=== PATIENT | female | born 1975 | race Two or more races ===

== ENCOUNTER 2020-07-15 12:01 | Inpatient (IN) | payer BC ==
[~2020-07-15] VITALS: Ht 147.3 cm; Wt 62.0 kg
[2020-07-15] MEDS ORDERED: LABETALOL 20 MG/4 ML DISP.SYRIN. IVP ONE (12:45)
[2020-07-15 12:46] LABS: BASO % 0 % (0-3); EOS # 0.1 x10^3/uL (0.0-0.7); EOS % 1 % (0-3); HEMATOCRIT 41.6 % (36.0-47.0); HEMOGLOBIN 14.4 g/dL (12.0-15.5); LYMPH # 1.6 x10^3/uL (1.0-4.8); LYMPH % 26 % (24-48); MEAN CORPUSCULAR HEMOGLOBIN 30 pg (25-35); MEAN CORPUSCULAR HGB CONC 35 g/dL (31-37); MEAN CORPUSCULAR VOLUME 87 fL (79-100); MONO # 0.6 x10^3/uL (0.0-1.1); MONO % 9 % (0-9); NEUT # 4.1 x10^3/uL (1.8-7.7); NEUT % 64 % (31-73); PLATELET COUNT 146 x10^3/uL (140-400); WHITE BLOOD COUNT 6.4 x10^3/uL (4.0-11.0)
[2020-07-15 12:49] LABS: BILIRUBIN,URINE NEGATIVE (NEG); CLARITY,URINE CLEAR; COLOR,URINE YELLOW; NITRITE,URINE NEGATIVE (NEG); PH,URINE 5.5 (<5.0-8.0); PROTEIN,URINE 30 mg/dL (NEG-TRACE); UROBILINOGEN,URINE 0.2 mg/dL (0.2 mg/dL)
[2020-07-15 12:56] LABS: PROTHROMBIN TIME PATIENT 12.6 SEC (11.7-14.0)
[2020-07-15 12:57] LABS: BARBITURATES NEG (NEG); BENZODIAZEPINES NEG (NEG); CANNABINOIDS NEG (NEG); COCAINE NEG (NEG); METHADONE NEG (NEG); OPIATES NEG (NEG); PHENCYCLIDINE NEG (NEG); SQUAMOUS EPITHELIAL CELL,UR FEW /LPF
[2020-07-15 12:58] LABS: CALCIUM 9.3 mg/dL (8.5-10.1); CREATININE 0.7 mg/dL (0.6-1.0); GFR 90.1; POTASSIUM 3.6 mmol/L (3.5-5.1)
[2020-07-15 12:58] LABS: BACTERIA,URINE 0 /HPF (0-FEW); RBC,URINE 0 /HPF (0-2)
[2020-07-15 12:59] LABS: AMPHETAMINE/METHAMPHETAMINE NEG (NEG)
--- NOTE | 2020-07-15 13:00 | RAD ---
Study: CR PORTABLE CHEST 1V Indication: Numbness. Comparison: None. Findings: Unremarkable cardiomediastinal silhouette and marvin. No lobar consolidation, pleural effusion or pneumothorax. Impression: No acute radiographic abnormality of the chest. Electronically signed by: BLU VIVAR MD (07/15/2020 12:57 PM) [id number]
[2020-07-15 13:03] LABS: ALBUMIN 3.6 g/dL (3.4-5.0); ALBUMIN/GLOBULIN RATIO 0.8 (1.0-1.7); MAGNESIUM 1.5 mg/dL (1.8-2.4); TOTAL BILIRUBIN 0.5 mg/dL (0.2-1.0); TOTAL PROTEIN 8.4 g/dL (6.4-8.2)
--- NOTE | 2020-07-15 13:15 | PHYS DOC ---
Past Medical History Past Medical History: No Pertinent History Past Surgical History: No Surgical History Smoking Status: Never Smoker Alcohol Use: None General Adult EDM: Chief Complaint: NEURO SYMPTOMS/DEFICITS HPI: HPI: Patient is a 44 year old female with no significant medical history presents to the ED today complaining of numbness and tingling the began yesterday at 3 PM to the left upper and left lower extremity. Patient denies any headache, chest pain or shortness of breath. She reports she went to urgent care today and was told her blood pressure was high and was sent to the ED to be evaluated. Jillian el denies any headache. Denies any nausea or vomiting. Review of Systems: Review of Systems: Constitutional: Denies fever or chills. [] Eyes: Denies change in visual acuity. [] HENT: Denies nasal congestion or sore throat. [] Respiratory: Denies cough or shortness of breath. [] Cardiovascular: Reports elevated blood pressure. Denies chest pain or edema. [] GI: Denies abdominal pain, nausea, vomiting, bloody stools or diarrhea. [] : Denies dysuria. [] Musculoskeletal: Denies back pain or joint pain. [] Integument: Denies rash. [] Neurologic: Reports headache, denies focal weakness or sensory changes. [] Psychiatric: Denies depression or anxiety. [] Heart Score: Risk Factors: Risk Factors: DM, Current or recent (<one month) smoker, HTN, HLP, family history of CAD, obesity. Risk Scores: Score 0 - 3: 2.5% MACE over next 6 weeks - Discharge Home Score 4 - 6: 20.3% MACE over next 6 weeks - Admit for Clinical Observation Score 7 - 10: 72.7% MACE over next 6 weeks - Early Invasive Strategies Current Medications: Current Medications Medications (Trade) Dose Ordered Sig/Ramon Start Time Stop Time Status Last Admin Dose Admin Labetalol HCl (Normodyne Iv Push) 10 mg 1X ONCE 07/15/20 12:45 07/15/20 12:46 DC 07/15/20 12:52 10 MG Allergies: Allergies: Allergies Coded Allergies Type Severity Reaction Last Updated Verified No Known Drug Allergies 07/15/20 No Physical Exam: PE: Constitutional: Well developed, well nourished, no acute distress, non-toxic appearance. [] HENT: Normocephalic, atraumatic, bilateral external ears normal, oropharynx moist, no oral exudates, nose normal. [] Eyes: PERRLA, EOMI, conjunctiva normal, no discharge. [] Neck: Normal range of motion, no tenderness, supple, no stridor. [] Cardiovascular:Heart rate regular rhythm, no murmur [] Lungs & Thorax: Bilateral breath sounds clear to auscultation [] Abdomen: Bowel sounds normal, soft, no tenderness, no masses, no pulsatile masses. [] Skin: Warm, dry, no erythema, no rash. [] Back: No tenderness, no CVA tenderness. [] Extremities: No tenderness, no cyanosis, no clubbing, ROM intact, no edema. 5/5 strength to bilateral upper and lower extremities. Equal sensation to bilateral upper and lower extremities. Neurologic: Alert and oriented X 3, normal motor function, normal sensory function, no focal deficits noted. Cranial nerves II through XII intact [] Psychologic: Affect normal, judgement normal, mood normal. [] Current Patient Data: Labs: Laboratory Tests Test 07/15/20 12:06 07/15/20 12:33 Urine Collection Type Unknown Urine Color Yellow Urine Clarity Clear Urine pH 5.5 (<5.0-8.0) Urine Specific [place] 1.010 (1.000-1.030) Urine Protein 30 mg/dL (NEG-TRACE) Urine Glucose (UA) Negative mg/dL (NEG) Urine Ketones (Stick) Negative mg/dL (NEG) Urine Blood Negative (NEG) Urine Nitrite Negative (NEG) Urine Bilirubin Negative (NEG) Urine Urobilinogen Dipstick 0.2 mg/dL (0.2 mg/dL) Urine Leukocyte Esterase Negative (NEG) Urine RBC 0 /HPF (0-2) Urine WBC 1-4 /HPF (0-4) Urine Squamous Epithelial Cells Few /LPF Urine Bacteria 0 /HPF (0-FEW) Urine Mucus Mod /LPF Urine Opiates Screen Neg (NEG) Urine Methadone Screen Neg (NEG) Urine Barbiturates Neg (NEG) Urine Phencyclidine Screen Neg (NEG) Urine Amphetamine/Methamphetamine Neg (NEG) Urine Benzodiazepines Screen Neg (NEG) Urine Cocaine Screen Neg (NEG) Urine Cannabinoids Screen Neg (NEG) Urine Ethyl Alcohol Neg (NEG) White Blood Count 6.4 x10^3/uL (4.0-11.0) Red Blood Count 4.80 x10^6/uL (3.50-5.40) Hemoglobin 14.4 g/dL (12.0-15.5) Hematocrit 41.6 % (36.0-47.0) Mean Corpuscular Volume 87 fL (79-100) Mean Corpuscular Hemoglobin 30 pg (25-35) Mean Corpuscular Hemoglobin Concent 35 g/dL (31-37) Red Cell Distribution Width 12.0 % (11.5-14.5) Platelet Count 146 x10^3/uL (140-400) Neutrophils (%) (Auto) 64 % (31-73) Lymphocytes (%) (Auto) 26 % (24-48) Monocytes (%) (Auto) 9 % (0-9) Eosinophils (%) (Auto) 1 % (0-3) Basophils (%) (Auto) 0 % (0-3) Neutrophils # (Auto) 4.1 x10^3/uL (1.8-7.7) Lymphocytes # (Auto) 1.6 x10^3/uL (1.0-4.8) Monocytes # (Auto) 0.6 x10^3/uL (0.0-1.1) Eosinophils # (Auto) 0.1 x10^3/uL (0.0-0.7) Basophils # (Auto) 0.0 x10^3/uL (0.0-0.2) Prothrombin Time 12.6 SEC (11.7-14.0) Prothrombin Time INR 1.0 (0.8-1.1) Activated Partial Thromboplast Time 27 SEC (24-38) Sodium Level 139 mmol/L (136-145) Potassium Level 3.6 mmol/L (3.5-5.1) Chloride Level 104 mmol/L (98-107) Carbon Dioxide Level 26 mmol/L (21-32) Anion Gap 9 (6-14) Blood Urea Nitrogen 11 mg/dL (7-20) Creatinine 0.7 mg/dL (0.6-1.0) Estimated GFR (Cockcroft-Gault) 90.1 BUN/Creatinine Ratio 16 (6-20) Glucose Level 172 mg/dL (70-99) H Calcium Level 9.3 mg/dL (8.5-10.1) Magnesium Level 1.5 mg/dL (1.8-2.4) L Total Bilirubin 0.5 mg/dL (0.2-1.0) Aspartate Amino Transferase (AST) 20 U/L (15-37) Alanine Aminotransferase (ALT) 35 U/L (14-59) Alkaline Phosphatase 70 U/L (46-116) Troponin I Quantitative < 0.017 ng/mL (0.000-0.055) Total Protein 8.4 g/dL (6.4-8.2) H Albumin 3.6 g/dL (3.4-5.0) Albumin/Globulin Ratio 0.8 (1.0-1.7) L Lipase 146 U/L (73-393) Laboratory Tests 07/15/20 12:33 Laboratory Tests 07/15/20 12:33 Vital Signs: Vital Signs Date Time Temp Pulse Resp B/P (MAP) Pulse Ox O2 Delivery O2 Flow Rate FiO2 07/15/20 12:52 105 187/85 07/15/20 12:05 98.1 20 94 Room Air 98.1 EKG: EKG: [] Radiology/Procedures: Radiology/Procedures: []PROCEDURE: PORTABLE CHEST 1V Study: CR PORTABLE CHEST 1V Indication: Numbness. Comparison: None. Findings: Unremarkable cardiomediastinal silhouette and marvin. No lobar consolidation, pleural effusion or pneumothorax. Impression: No acute radiographic abnormality of the chest. Electronically signed by: BLU VIVAR MD (07/15/2020 12:57 PM) [id number] DICTATED and SIGNED BY: BLU VIVAR MD DATE: 07/15/20 1257 ROCEDURE: CT HEAD WO CONTRAST EXAM: Head CT without contrast. HISTORY: Left hand and foot numbness. TECHNIQUE: Computed tomographic images of the head were obtained without contrast. *One or more of the following individualized dose reduction techniques were utilized for this examination: 1. Automated exposure control. 2. Adjustment of the mA and/or kV according to patient size. 3. Use of iterative reconstruction technique. COMPARISON: None. FINDINGS: There is no acute or subacute extra-axial or intraparenchymal hemorrhage. There is no mass effect or midline shift. There is no hydrocephalus. There is a small focus of hypodensity within the left centrum semiovale. The humphries-white matter differentiation pattern is intact. The visualized portions of the orbits, paranasal sinuses and mastoid air cells are unremarkable. No suspicious calvarial lesion is seen. IMPRESSION: Small focus of hyperdensity within the left centrum semiovale. This may be due to chronic small vessel disease or demyelinating disease in a patient of this age. This can be better assessed with MRI. MRI is also more sensitive for acute infarction. Electronically signed by: Odalys Davidson MD (07/15/2020 1:23 PM) [id number] DICTATED and SIGNED BY: ODALYS DAVIDSON MD DATE: 07/15/20 1323 Course & Med Decision Making: Course & Med Decision Making Pertinent Labs and Imaging studies reviewed. (See chart for details) This is a 44-year-old female patient presenting to the ED today with numbness and tingling to the left upper and left lower extremities. Symptoms began yesterday at 3 PM. Patient is not a TPA candidate. Vitals on arrival to the ED blood pressure 183/106, heart rate 86, O2 sats 94% o n room air CT of the head noted for -Small focus of hyperdensity within the left centrum semiovale.This may be due to chronic small vessel disease or demyelinating disease in a patient of this age. This can be better assessed with MRI. MRI is also more sensitive for acute infarction. Spoke to Dr. Mendes regarding patient's EKG of the head. He requested we get a CTA today and MRI tomorrow. Gave patient aspirin Spoke with Dr. Garvin who accepted patient for admission Dr. Westfall was informed about patient's dx and condition. Larry Disclaimer: Larry Disclaimer: This electronic medical record was generated, in whole or in part, using a voice recognition dictation system. NIHSS Stroke Scale NIH Stroke Scale: NIH Stroke Scale Response (Comments) Value Level of Consciousness: 0 Alert/Responsive 0 LOC Questions: 0 Answers both correctly 0 LOC Commands: 0 Performs both tasks 0 Best Gaze: 0 Normal 0 Visual: 0 No visual loss 0 Facial Palsy: 0 Normal, symmetrical 0 Motor - Left Arm 0 No drift 0 Motor - Right Arm 0 No drift 0 Motor - Left Leg 0 No drift 0 Motor: Right Leg 0 No drift 0 Limb Ataxia: 0 Absent 0 Sensory: 0 No loss 0 Best Language: 0 Normal 0 Dysathria: 0 Normal 0 Extinction and Inattention: 0 Normal 0 Total 0 Departure Departure Impression: Primary Impression: CVA (cerebral vascular accident) Qualified Codes: I63.9 - Cerebral infarction, unspecified Additional Impression: HTN (hypertension) Qualified Codes: I10 - Essential (primary) hypertension Disposition: 09 ADMITTED INPATIENT Condition: STABLE Justicifation of Admission Dx: Justifications for Admission: Justification of Admission Dx: Yes Stroke - Ischemic: Stroke-Ischemic MICHELLE MORE APRN Jul 15, 2020 13:15
--- NOTE | 2020-07-15 13:26 | RAD ---
EXAM: Head CT without contrast. HISTORY: Left hand and foot numbness. TECHNIQUE: Computed tomographic images of the head were obtained without contrast. *One or more of the following individualized dose reduction techniques were utilized for this examination: 1. Automated exposure control. 2. Adjustment of the mA and/or kV according to patient size. 3. Use of iterative reconstruction technique. COMPARISON: None. FINDINGS: There is no acute or subacute extra-axial or intraparenchymal hemorrhage. There is no mass effect or midline shift. There is no hydrocephalus. There is a small focus of hypodensity within the left centrum semiovale. The humphries-white matter differentiation pattern is intact. The visualized portions of the orbits, paranasal sinuses and mastoid air cells are unremarkable. No suspicious calvarial lesion is seen. IMPRESSION: Small focus of hyperdensity within the left centrum semiovale. This may be due to chronic small vessel disease or demyelinating disease in a patient of this age. This can be better assessed with MRI. MRI is also more sensitive for acute infarction. Electronically signed by: Odalys Barkley MD (07/15/2020 1:23 PM) [id number]
[2020-07-15] MEDS ORDERED: ASPIRIN CHEWABLE 81 MG TABLET. PO ONE (14:00)
[2020-07-15] MEDS ORDERED: IOHEXOL 300 MG/ML 100ML VIAL. IV ONE (14:30)
[2020-07-15] MEDS ORDERED: MORPHINE SULFATE 2 MG/ML VIAL. IV PRN (14:45)
[2020-07-15] MEDS ORDERED: ONDANSETRON PF 4 MG/2 ML VIAL. IV PRN (14:45)
[2020-07-15] MEDS ORDERED: POTASSIUM CHLORIDE 20 MEQ TABLET.ER. PO PRN (15:00)
[2020-07-15] MEDS ORDERED: SENNOSIDES 8.6 MG TABLET PO PRN (15:00)
[2020-07-15] MEDS ORDERED: ONDANSETRON PF 4 MG/2 ML VIAL. IVP PRN (15:00)
[2020-07-15] MEDS ORDERED: POTASSIUM CHLORIDE 10MEQ 100 ML IV PRN (15:00)
[2020-07-15] MEDS ORDERED: DEXTROSE 50% 25 GM / 50ML DISP.SYRIN. IV PRN (15:00)
[2020-07-15] MEDS ORDERED: POTASSIUM CHLORIDE 10MEQ 100 ML IV SCH (15:00)
[2020-07-15] MEDS ORDERED: ACETAMINOPHEN 325 MG TABLET. PO PRN (15:00)
[2020-07-15] MEDS ORDERED: DOCUSATE SODIUM 100 MG CAPSULE. PO PRN (15:00)
[2020-07-15] MEDS ORDERED: MAGNESIUM SULFATE 2GM 50 ML IV SCH (15:00)
--- NOTE | 2020-07-15 15:00 | PDOC1 ---
History and Physical Date of Service: DOS: DATE: 07/15/20 TIME: 14:42 Chief Complaint: Chief Complain: Left side numbness History of Present Illness: HPI: 44 year old female with no significant medical history presents to the ED today complaining of numbness and tingling the began yesterday at 3 PM to the left upper and left lower extremity. Patient denies any headache, chest pain or shortness of breath. She reports she went to urgent care today and was told her blood pressure was high and was sent to the ED to be evaluated. Patient denies any headache. Denies any nausea or vomiting. Past Medical/Surgical History: PMH/PSH: Reviewed and none reported Allergies: Allergies: Coded Allergies: No Known Drug Allergies (Unverified , 07/15/20) Family History: Family History: Reviewed and none reported Social History: Social History: Denies smoking, alcohol, drug abuse Current Medications: Current Medications Current Medications Labetalol HCl (Normodyne Iv Push) 10 mg 1X ONCE IVP Last administered on 07/15/20at 12:52; Start 07/15/20 at 12:45; Stop 07/15/20 at 12:46; Status DC Aspirin (Aspirin Chewable) 324 mg 1X ONCE PO Last administered on 07/15/20at 14:12; Start 07/15/20 at 14:00; Stop 07/15/20 at 14:04; Status DC Iohexol (Omnipaque 300 Mg/ml) 75 ml 1X ONCE IV ; Start 07/15/20 at 14:30; Stop 07/15/20 at 14:31; Status DC ROS: Review of Systems Review of System REVIEW OF SYSTEMS: GENERAL: Denies weakness SKIN: No bruising, hair changes or rashes. EYES: No blurred, double or loss of vision. NOSE AND THROAT: No history of nosebleeds, hoarseness or sore throat. HEART: No history of palpitations, chest pain or shortness of breath on exertion. LUNGS: Denies cough, hemoptysis, wheezing or shortness of breath. GASTROINTESTINAL: Denies changes in appetite, nausea, vomiting, diarrhea or constipation. GENITOURINARY: No history of frequency, urgency, hesitancy or nocturia. NEUROLOGIC: Denies history of numbness, tingling, or tremor. PSYCHIATRIC: No history of panic, anxiety or depression. ENDOCRINE: No history of heat or cold intolerance, polyuria or polydipsia. EXTREMITIES: Denies joint pain, pain on walking or stiffness. Physical Exam: Vital Signs: Vital Signs Date Time Temp Pulse Resp B/P (MAP) Pulse Ox O2 Delivery O2 Flow Rate FiO2 07/15/20 12:52 105 187/85 07/15/20 12:05 98.1 20 94 Room Air 98.1 Physcial Exam: GEN: No apparent distress. Alert and oriented HEENT: Normal cephalic, atraumatic, external auditory canals are patent EYES: Extraocular muscles are intact, pupil are equally round and reactive to light and accommodation MUSCULOSKELETAL: Well developed , well nourished, good range of motion ENDOCRINE: No thyromegaly was palpated LYMPHATICS: No cervical chain or axillary nodes were noted HEMATOPOIETIC: No bruising NECK: Supple, no JVD, no thyromegaly was noted LUNGS: Clear to auscultation in all lung low without rhonchi or wheezing HEART: RRR, S!, S2 present. Peripheral pulses intact, no obvious murmurs noted ABDOMEN: Soft, nontender. Positive bowel sounds, no organomegaly, normal bowel sounds EXTREMITIES: Without clubbing, cyanosis, or edema. Pedal pulses intact. Negative Homans sign NEUROLOGIC: Normal speech and tone. A&O x 3, moves all extremities, no obvious focal deficits PSYCHIATRIC: Normal affect, normal mood. Stable SKIN: No ulcerations or rashes, good skin turgor, no jaundice VASCULAR: Good capillary refill, neurovascular bundle appears to be intact Labs: Labs: Laboratory Tests Test 07/15/20 12:06 07/15/20 12:33 Urine Collection Type Unknown Urine Color Yellow Urine Clarity Clear Urine pH 5.5 (<5.0-8.0) Urine Specific [place] 1.010 (1.000-1.030) Urine Protein 30 mg/dL (NEG-TRACE) Urine Glucose (UA) Negative mg/dL (NEG) Urine Ketones (Stick) Negative mg/dL (NEG) Urine Blood Negative (NEG) Urine Nitrite Negative (NEG) Urine Bilirubin Negative (NEG) Urine Urobilinogen Dipstick 0.2 mg/dL (0.2 mg/dL) Urine Leukocyte Esterase Negative (NEG) Urine RBC 0 /HPF (0-2) Urine WBC 1-4 /HPF (0-4) Urine Squamous Epithelial Cells Few /LPF Urine Bacteria 0 /HPF (0-FEW) Urine Mucus Mod /LPF Urine Opiates Screen Neg (NEG) Urine Methadone Screen Neg (NEG) Urine Barbiturates Neg (NEG) Urine Phencyclidine Screen Neg (NEG) Urine Amphetamine/Methamphetamine Neg (NEG) Urine Benzodiazepines Screen Neg (NEG) Urine Cocaine Screen Neg (NEG) Urine Cannabinoids Screen Neg (NEG) Urine Ethyl Alcohol Neg (NEG) White Blood Count 6.4 x10^3/uL (4.0-11.0) Red Blood Count 4.80 x10^6/uL (3.50-5.40) Hemoglobin 14.4 g/dL (12.0-15.5) Hematocrit 41.6 % (36.0-47.0) Mean Corpuscular Volume 87 fL (79-100) Mean Corpuscular Hemoglobin 30 pg (25-35) Mean Corpuscular Hemoglobin Concent 35 g/dL (31-37) Red Cell Distribution Width 12.0 % (11.5-14.5) Platelet Count 146 x10^3/uL (140-400) Neutrophils (%) (Auto) 64 % (31-73) Lymphocytes (%) (Auto) 26 % (24-48) Monocytes (%) (Auto) 9 % (0-9) Eosinophils (%) (Auto) 1 % (0-3) Basophils (%) (Auto) 0 % (0-3) Neutrophils # (Auto) 4.1 x10^3/uL (1.8-7.7) Lymphocytes # (Auto) 1.6 x10^3/uL (1.0-4.8) Monocytes # (Auto) 0.6 x10^3/uL (0.0-1.1) Eosinophils # (Auto) 0.1 x10^3/uL (0.0-0.7) Basophils # (Auto) 0.0 x10^3/uL (0.0-0.2) Prothrombin Time 12.6 SEC (11.7-14.0) Prothromb Time International Ratio 1.0 (0.8-1.1) Activated Partial Thromboplast Time 27 SEC (24-38) Sodium Level 139 mmol/L (136-145) Potassium Level 3.6 mmol/L (3.5-5.1) Chloride Level 104 mmol/L (98-107) Carbon Dioxide Level 26 mmol/L (21-32) Anion Gap 9 (6-14) Blood Urea Nitrogen 11 mg/dL (7-20) Creatinine 0.7 mg/dL (0.6-1.0) Estimated GFR (Cockcroft-Gault) 90.1 BUN/Creatinine Ratio 16 (6-20) Glucose Level 172 mg/dL (70-99) Calcium Level 9.3 mg/dL (8.5-10.1) Magnesium Level 1.5 mg/dL (1.8-2.4) Total Bilirubin 0.5 mg/dL (0.2-1.0) Aspartate Amino Transf (AST/SGOT) 20 U/L (15-37) Alanine Aminotransferase (ALT/SGPT) 35 U/L (14-59) Alkaline Phosphatase 70 U/L (46-116) Troponin I Quantitative < 0.017 ng/mL (0.000-0.055) BZ-Oll-I-Type Natriuretic Peptide 23 pg/mL (0-124) Total Protein 8.4 g/dL (6.4-8.2) Albumin 3.6 g/dL (3.4-5.0) Albumin/Globulin Ratio 0.8 (1.0-1.7) Lipase 146 U/L (73-393) Thyroid Stimulating Hormone (TSH) 0.323 uIU/mL (0.358-3.74) Laboratory Tests Test 07/15/20 12:06 07/15/20 12:33 Urine Collection Type Unknown Urine Color Yellow Urine Clarity Clear Urine pH 5.5 (<5.0-8.0) Urine Specific [place] 1.010 (1.000-1.030) Urine Protein 30 mg/dL (NEG-TRACE) Urine Glucose (UA) Negative mg/dL (NEG) Urine Ketones (Stick) Negative mg/dL (NEG) Urine Blood Negative (NEG) Urine Nitrite Negative (NEG) Urine Bilirubin Negative (NEG) Urine Urobilinogen Dipstick 0.2 mg/dL (0.2 mg/dL) Urine Leukocyte Esterase Negative (NEG) Urine RBC 0 /HPF (0-2) Urine WBC 1-4 /HPF (0-4) Urine Squamous Epithelial Cells Few /LPF Urine Bacteria 0 /HPF (0-FEW) Urine Mucus Mod /LPF Urine Opiates Screen Neg (NEG) Urine Methadone Screen Neg (NEG) Urine Barbiturates Neg (NEG) Urine Phencyclidine Screen Neg (NEG) Urine Amphetamine/Methamphetamine Neg (NEG) Urine Benzodiazepines Screen Neg (NEG) Urine Cocaine Screen Neg (NEG) Urine Cannabinoids Screen Neg (NEG) Urine Ethyl Alcohol Neg (NEG) White Blood Count 6.4 x10^3/uL (4.0-11.0) Red Blood Count 4.80 x10^6/uL (3.50-5.40) Hemoglobin 14.4 g/dL (12.0-15.5) Hematocrit 41.6 % (36.0-47.0) Mean Corpuscular Volume 87 fL (79-100) Mean Corpuscular Hemoglobin 30 pg (25-35) Mean Corpuscular Hemoglobin Concent 35 g/dL (31-37) Red Cell Distribution Width 12.0 % (11.5-14.5) Platelet Count 146 x10^3/uL (140-400) Neutrophils (%) (Auto) 64 % (31-73) Lymphocytes (%) (Auto) 26 % (24-48) Monocytes (%) (Auto) 9 % (0-9) Eosinophils (%) (Auto) 1 % (0-3) Basophils (%) (Auto) 0 % (0-3) Neutrophils # (Auto) 4.1 x10^3/uL (1.8-7.7) Lymphocytes # (Auto) 1.6 x10^3/uL (1.0-4.8) Monocytes # (Auto) 0.6 x10^3/uL (0.0-1.1) Eosinophils # (Auto) 0.1 x10^3/uL (0.0-0.7) Basophils # (Auto) 0.0 x10^3/uL (0.0-0.2) Prothrombin Time 12.6 SEC (11.7-14.0) Prothromb Time International Ratio 1.0 (0.8-1.1) Activated Partial Thromboplast Time 27 SEC (24-38) Sodium Level 139 mmol/L (136-145) Potassium Level 3.6 mmol/L (3.5-5.1) Chloride Level 104 mmol/L (98-107) Carbon Dioxide Level 26 mmol/L (21-32) Anion Gap 9 (6-14) Blood Urea Nitrogen 11 mg/dL (7-20) Creatinine 0.7 mg/dL (0.6-1.0) Estimated GFR (Cockcroft-Gault) 90.1 BUN/Creatinine Ratio 16 (6-20) Glucose Level 172 mg/dL (70-99) Calcium Level 9.3 mg/dL (8.5-10.1) Magnesium Level 1.5 mg/dL (1.8-2.4) Total Bilirubin 0.5 mg/dL (0.2-1.0) Aspartate Amino Transf (AST/SGOT) 20 U/L (15-37) Alanine Aminotransferase (ALT/SGPT) 35 U/L (14-59) Alkaline Phosphatase 70 U/L (46-116) Troponin I Quantitative < 0.017 ng/mL (0.000-0.055) AC-Rkg-C-Type Natriuretic Peptide 23 pg/mL (0-124) Total Protein 8.4 g/dL (6.4-8.2) Albumin 3.6 g/dL (3.4-5.0) Albumin/Globulin Ratio 0.8 (1.0-1.7) Lipase 146 U/L (73-393) Thyroid Stimulating Hormone (TSH) 0.323 uIU/mL (0.358-3.74) Images: Images CT of the head Small focus of hyperdensity within the left centrum semiovale. This may be due to chronic small vessel disease or demyelinating disease in a patient of this age. This can be better assessed with MRI. MRI is also more sensitive for acute infarction. Assessment/Plan Assessment/Plan Acute TIA versus ischemic stroke Hypertensive urgency Hyperglycemia Hypomagnesemia Concern for hyperthyroidism EKG Onset of symptoms > 4.5 hours NIH 0 Admit to medicine for further workup Neuro consult Pending MRI brain, TTE, carotid U/S vs CTA head/neck if suspecting large ant erior circulation occulsion within 24 hours of presentation of symptoms continue telemonitoring for at least 24 hours contine IVF while NPO maintain normoglycemia with goals of 140-180 permissive HTN with goals between 140-180/90-105 for at least 24 hours if tPA administered, maintain BP goals < 180/105 for at least 24 hours continue ASA 81 daily within 48 hours continue high intensity statins pending PT/OT/speech Pending T4 levels SCD for DVT prophylaxis, can consider Lovenox within the next 24 hours ADA diet Full code Discussed with RN and SW Disposition pending neuro evaluation Surrogate decision maker is the Justifications for Admission Other Justification CLAUDIA SMITH MD Jul 15, 2020 15:00
--- NOTE | 2020-07-15 15:07 | RAD ---
EXAM: CT angiogram of the head and neck with intravenous contrast. HISTORY: Stroke. TECHNIQUE: Computed tomographic images the head and neck were obtained following the administration of intravenous contrast. Three-dimensional maximum intensity projection images were obtained. COMPARISON: Noncontrast head CT obtained on the same date. FINDINGS: There is a dilated ascending aorta measuring 3.9 cm. This is partially excluded from the cioca-sp-soag. There is a standard aortic arch branching pattern. No aortic dissection is seen. There is no pneumothorax. There is posterior dependent atelectasis. There is no suspicious pulmonary nodule. There is a prominent thyroid. No discrete nodule is seen. The parotid and submandibular glands are unremarkable. There are prominent left greater than right submandibular lymph nodes. For reference purposes, there is a left submental lymph node measuring 1.8 cm in maximum transaxial dimension. There is mild partially calcified atherosclerotic plaque involving the proximal left external carotid artery, without associated stenosis. No image of the syndesmosis is seen involving the internal carotid arteries. There is a duplicated right A1 segment or early branching prominent right anterior communicating artery with hypoplastic left A1 segment. There is a patent right posterior communicating artery. The left posterior communicating artery is relatively absent. The right vertebral artery slightly dominant. No aneurysm is seen. No suspicious enhancing lesion is seen. There is no mass effect or midline shift. There is no hydrocephalus. The humphries-white matter differentiation pattern is intact. The recently demonstrated small focus of hyperdensity within the left centrum small bowel is not well seen given the presence of contrast. There is mild paranasal sinus because of thickening with tiny left maxillary sinus mucous retention cysts. The mastoid air cells are clear. The orbits are unremarkable. There is no suspicious osseous lesion. IMPRESSION: 1. No evidence of hemodynamically significant stenosis or aneurysm. There are normal cerebral vascular anatomic variants, described above. 2. Small subtle focus of hyperdensity within the left centrum semiovale, better characterized on the noncontrast exam performed on the same date. This may be due to chronic small vessel disease or a focus of demyelination in a patient of this age. MRI is more sensitive for acute infarction. 3. Mildly dilated ascending aorta measuring 3.9 cm in caliber. This is partially excluded from the [id number]. PQRS Compliance Statement - Stenosis calculations for CT, MR and conventional angiography are based upon measurement of the distal ICA diameter in accordance with the NASCET methodology. Stenosis calculations for carotid ultrasound studies are derived from validated velocity criteria which are known to correlate with the NASCET methodology. Electronically signed by: Odalys Barkley MD (07/15/2020 3:04 PM) [id number]
[2020-07-15] MEDS ORDERED: ELECTROLYTE (NON-ICU) PROTOCOL MC PRN (15:15)
[2020-07-15 15:59] LABS: CHOLESTEROL/HDL RATIO 4.6
[2020-07-15] MEDS: INSULIN LISPRO 300 UNITS/3 ML VIAL. SQ SCH (16:57)
[2020-07-15] MEDS: MAGNESIUM SULFATE 2GM 50 ML IV SCH (16:57)
[2020-07-15 19:00] VITALS: BP 164/91
[2020-07-15] MEDS: ATORVASTATIN CALCIUM 40 MG TABLET. PO SCH (21:00)
[2020-07-15] MEDS ORDERED: MAGNESIUM OXIDE 400 MG TABLET PO SCH (21:00)
[2020-07-15 23:00] VITALS: BP 120/85
[2020-07-16 02:07] LABS: HEMOGLOBIN A1C 8.6 % (4.8-5.6)
[2020-07-16 03:00] VITALS: BP 133/79
[2020-07-16 04:58] LABS: BASO % 0 % (0-3); EOS # 0.1 x10^3/uL (0.0-0.7); EOS % 2 % (0-3); HEMATOCRIT 37.2 % (36.0-47.0); HEMOGLOBIN 12.9 g/dL (12.0-15.5); LYMPH % 37 % (24-48); MEAN CORPUSCULAR HEMOGLOBIN 30 pg (25-35); MEAN CORPUSCULAR HGB CONC 35 g/dL (31-37); MEAN CORPUSCULAR VOLUME 87 fL (79-100); MONO # 0.6 x10^3/uL (0.0-1.1); MONO % 11 % (0-9); NEUT # 2.7 x10^3/uL (1.8-7.7); NEUT % 50 % (31-73); PLATELET COUNT 138 x10^3/uL (140-400); RED BLOOD COUNT 4.26 x10^6/uL (3.50-5.40); RED CELL DISTRIBUTION WIDTH 12.2 % (11.5-14.5); WHITE BLOOD COUNT 5.3 x10^3/uL (4.0-11.0)
[2020-07-16 05:26] LABS: CALCIUM 8.5 mg/dL (8.5-10.1); CREATININE 0.6 mg/dL (0.6-1.0); GFR 107.6; PHOSPHORUS 4.1 mg/dL (2.6-4.7); POTASSIUM 3.4 mmol/L (3.5-5.1)
[2020-07-16 07:00] VITALS: BP 118/72
[2020-07-16] MEDS: INSULIN LISPRO 300 UNITS/3 ML VIAL. SQ SCH ×3 (08:00→17:00)
--- NOTE | 2020-07-16 08:53 | EKG ---
[facility] [address] [place] [address] Test Date: 2020-07-15 Test Time: 12:29:27 Pat Name: JEWELL HUTCHINSON Department: Room: Gender: F Mid Level Provider: : 1975 Requested By: MICHELLE MORE Order Number: [id number] Reading MD: Measurements Intervals [place] Rate: 86 P: 32 ID: [id number] QRS: -3 QRSD: 86 T: 7 QT: 348 QTc: 419 Interpretive Statements SINUS RHYTHM LEFTWARD AXIS OTHERWISE NORMAL ECG RI6.02 No previous ECG available for comparison
--- NOTE | 2020-07-16 10:26 | RAD ---
BRAIN W/O CONTRAST Date: 07/16/2020 8:00 AM Indication: possible CVA, numbness and tingling LUE and LLE Comparison: CT 07/15/2020. Technique: Multiplanar multisequence MRI of the brain was performed without intravenous contrast using the standard protocol. Findings: Small area of restricted diffusion in the right frontoparietal region. No acute or chronic hemorrhage. The ventricles are normal in size and configuration without hydrocephalus. The scalp and calvarium are normal. The pituitary and sella are normal. No Chiari malformation. The visualized upper cervical spine is normal. The visualized orbits and globes are normal. The visualized paranasal sinuses are clear. The mastoid air cells are clear. Normal flow voids within the vertebral, basilar, and internal carotid arteries indicating patency. IMPRESSION: Small area of acute infarct in the right frontoparietal region. No acute hemorrhage. FOR INTERNAL CODING PURPOSES Critical result: Findings discussed with the patient's nurse at 07/16/2020 10:19 AM. RESULT CODE: (C) Electronically signed by: Parth Benson MD (07/16/2020 10:23 AM) [id number]
--- NOTE | 2020-07-16 10:53 | PDOC2 ---
NEUROLOGY CONSULT Date of Service DOS: DATE: 07/16/20 TIME: 10:47 Reason for Consult Reason for Consult: stroke Source Source: Caregiver (family), Patient History of Present Illness History of Present Illness The patient is a 44 year old right-handed female who had onset of tingling and numbness the afternoon of 07/14. She presented to the merger department or 07/15, far outside the [place] treatment window. There is no prior history of stroke, seizure, or head injury. She does not usually see a doctor but think she may have some high blood pressure. 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, meat worker Current Medications Current Medications Current Medications Labetalol HCl (Normodyne Iv Push) 10 mg 1X ONCE IVP Last administered on 07/15/20at 12:52; Start 07/15/20 at 12:45; Stop 07/15/20 at 12:46; Status DC Aspirin (Aspirin Chewable) 324 mg 1X ONCE PO Last administered on 07/15/20at 14:12; Start 07/15/20 at 14:00; Stop 07/15/20 at 14:04; Status DC Iohexol (Omnipaque 300 Mg/ml) 75 ml 1X ONCE IV Last administered on 07/15/20at 14:30; Start 07/15/20 at 14:30; Stop 07/15/20 at 14:31; Status DC Ondansetron HCl (Zofran) 4 mg PRN Q8HRS PRN IV NAUSEA/VOMITING; Start 07/15/20 at 14:45; Stop 07/16/20 at 14:44 Morphine Sulfate (Morphine Sulfate) 2 mg PRN Q2HR PRN IV PAIN; Start 07/15/20 at 14:45; Stop 07/16/20 at 14:44 Sennosides (Senna) 17.2 mg PRN BID PRN PO CONSTIPATION; Start 07/15/20 at 15:00 Docusate Sodium (Colace) 100 mg PRN DAILY PRN PO HARD STOOLS; Start 07/15/20 at 15:00 Ondansetron HCl (Zofran) 4 mg PRN Q6HRS PRN IVP NAUSEA/VOMITING; Start 07/15/20 at 15:00 Potassium Chloride (Klor-Con) 40 meq 1X PRN PO PER PROTOCOL; Start 07/15/20 at 15:00; Status UNV Magnesium Oxide (Magnesium Oxide) 400 mg BID PO ; Start 07/15/20 at 21:00; Stop 07/17/20 at 09:01; Status UNV Potassium Chloride/Water 100 ml @ 100 mls/hr Q1H IV ; Start 07/15/20 at 15:00; Stop 07/15/20 at 18:59; Status UNV Magnesium Sulfate 50 ml @ 25 mls/hr Q24H IV ; Start 07/15/20 at 15:00; Stop 07/17/20 at 16:59; Status UNV Potassium Chloride/Water 100 ml @ 100 mls/hr Q1H PRN IV low k; Start 07/15/20 at 15:00; Status UNV Aspirin (Ecotrin) 81 mg DAILYWBKFT PO ; Start 07/16/20 at 08:00 Insulin Human Lispro (HumaLOG) 0-5 UNITS TIDWMEALS SQ ; Start 07/15/20 at 17:00 Dextrose (Dextrose 50%-Water Syringe) 12.5 gm PRN Q15MIN PRN IV SEE COMMENTS; Start 07/15/20 at 15:00 Acetaminophen (Tylenol) 650 mg PRN Q4HRS PRN PO TEMP OVER 100.4F OR MILD PAIN; Start 07/15/20 at 15:00 Info (Non-Icu Electrolyte Protocol) 1 ea CONT PRN PRN MC PER PROTOCOL; Start 07/15/20 at 15:15 Atorvastatin Calcium (Lipitor) 40 mg QHS PO ; Start 07/15/20 at 21:00 Magnesium Sulfate 50 ml @ 25 mls/hr Q24H IV Last administered on 07/15/20at 16:57; Start 07/15/20 at 17:00; Stop 07/17/20 at 18:59 Allergies Allergies: Coded Allergies: No Known Drug Allergies (Unverified , 07/15/20) ROS Review of System Negative for fever, chills, weight loss, shortness of breath, chest pain, indigestion, hematochezia, melena, and dysuria. Full 14-point review of systems is negative. Physical Exam Physical Examination General: Well-developed, well-nourished female in no acute distress HEENT: Normocephalic andatraumatic. Temporal arteriespulsatile and nontender. Neck: Supple without bruit, no meningismus Musculoskeletal: Stability:see neurologic. Gait exam:see neurologic. Tone:see neurologic.Strength:see neurologic. Neurological: Mental Status:intact, orientation, memory, attention span/concentration, language, fund of knowledge normal. Cranial Nerves:Pupils equal and reactive to light, extraocular movements areintact, visual low are full to confrontation. Facial sensation is normal. There is no facial asymmetry. Vestibulo-ocular reflex is intact. Palate elevates and tongue protrudes in midline. All other cranial related problems are negative except as mentioned before.Reflexes:2+ and symmetric with flexor plantar responses. Motor:4/5 left hemiparesis with normal tone and bulk. Coordination:Finger-nose finger and pbki-nc-fudi testing are normal. Rapid alternating movements and fine finger movements are intact. Gait: not tested. Sensory:Normal pinprick, vibration, light touch, proprioception. Vitals VITALS Vital Signs Date Time Temp Pulse Resp B/P (MAP) Pulse Ox O2 Delivery O2 Flow Rate FiO2 07/16/20 07:00 98.4 76 20 118/72 (87) 95 Room Air 98.4 Labs Labs Laboratory Tests Test 07/15/20 12:06 07/15/20 12:33 07/15/20 15:35 07/15/20 16:55 Urine Collection Type Unknown Urine Color Yellow Urine Clarity Clear Urine pH 5.5 (<5.0-8.0) Urine Specific [place] 1.010 (1.000-1.030) Urine Protein 30 mg/dL (NEG-TRACE) Urine Glucose (UA) Negative mg/dL (NEG) Urine Ketones (Stick) Negative mg/dL (NEG) Urine Blood Negative (NEG) Urine Nitrite Negative (NEG) Urine Bilirubin Negative (NEG) Urine Urobilinogen Dipstick 0.2 mg/dL (0.2 mg/dL) Urine Leukocyte Esterase Negative (NEG) Urine RBC 0 /HPF (0-2) Urine WBC 1-4 /HPF (0-4) Urine Squamous Epithelial Cells Few /LPF Urine Bacteria 0 /HPF (0-FEW) Urine Mucus Mod /LPF Urine Opiates Screen Neg (NEG) Urine Methadone Screen Neg (NEG) Urine Barbiturates Neg (NEG) Urine Phencyclidine Screen Neg (NEG) Urine Amphetamine/Methamphetamine Neg (NEG) Urine Benzodiazepines Screen Neg (NEG) Urine Cocaine Screen Neg (NEG) Urine Cannabinoids Screen Neg (NEG) Urine Ethyl Alcohol Neg (NEG) White Blood Count 6.4 x10^3/uL (4.0-11.0) Red Blood Count 4.80 x10^6/uL (3.50-5.40) Hemoglobin 14.4 g/dL (12.0-15.5) Hematocrit 41.6 % (36.0-47.0) Mean Corpuscular Volume 87 fL (79-100) Mean Corpuscular Hemoglobin 30 pg (25-35) Mean Corpuscular Hemoglobin Concent 35 g/dL (31-37) Red Cell Distribution Width 12.0 % (11.5-14.5) Platelet Count 146 x10^3/uL (140-400) Neutrophils (%) (Auto) 64 % (31-73) Lymphocytes (%) (Auto) 26 % (24-48) Monocytes (%) (Auto) 9 % (0-9) Eosinophils (%) (Auto) 1 % (0-3) Basophils (%) (Auto) 0 % (0-3) Neutrophils # (Auto) 4.1 x10^3/uL (1.8-7.7) Lymphocytes # (Auto) 1.6 x10^3/uL (1.0-4.8) Monocytes # (Auto) 0.6 x10^3/uL (0.0-1.1) Eosinophils # (Auto) 0.1 x10^3/uL (0.0-0.7) Basophils # (Auto) 0.0 x10^3/uL (0.0-0.2) Prothrombin Time 12.6 SEC (11.7-14.0) Prothromb Time International Ratio 1.0 (0.8-1.1) Activated Partial Thromboplast Time 27 SEC (24-38) Sodium Level 139 mmol/L (136-145) Potassium Level 3.6 mmol/L (3.5-5.1) Chloride Level 104 mmol/L (98-107) Carbon Dioxide Level 26 mmol/L (21-32) Anion Gap 9 (6-14) Blood Urea Nitrogen 11 mg/dL (7-20) Creatinine 0.7 mg/dL (0.6-1.0) Estimated GFR (Cockcroft-Gault) 90.1 BUN/Creatinine Ratio 16 (6-20) Glucose Level 172 mg/dL (70-99) Hemoglobin A1c 8.6 % (4.8-5.6) Calcium Level 9.3 mg/dL (8.5-10.1) Magnesium Level 1.5 mg/dL (1.8-2.4) Total Bilirubin 0.5 mg/dL (0.2-1.0) Aspartate Amino Transf (AST/SGOT) 20 U/L (15-37) Alanine Aminotransferase (ALT/SGPT) 35 U/L (14-59) Alkaline Phosphatase 70 U/L (46-116) Troponin I Quantitative < 0.017 ng/mL (0.000-0.055) < 0.017 ng/mL (0.000-0.055) AM-Eex-K-Type Natriuretic Peptide 23 pg/mL (0-124) Total Protein 8.4 g/dL (6.4-8.2) Albumin 3.6 g/dL (3.4-5.0) Albumin/Globulin Ratio 0.8 (1.0-1.7) Triglycerides Level 88 mg/dL (0-150) Cholesterol Level 256 mg/dL (0-200) LDL Cholesterol, Calculated 182 mg/dL (0-100) VLDL Cholesterol, Calculated 18 mg/dL (0-40) Non-HDL Cholesterol Calculated 200 mg/dL (0-129) HDL Cholesterol 56 mg/dL (40-60) Cholesterol/HDL Ratio 4.6 Lipase 146 U/L (73-393) Thyroid Stimulating Hormone (TSH) 0.323 uIU/mL (0.358-3.74) Free Thyroxine 1.20 ng/dL (0.76-1.46) Glucose (Fingerstick) 158 mg/dL (70-99) Test 07/15/20 17:40 07/15/20 21:33 07/16/20 03:40 07/16/20 08:04 Troponin I Quantitative < 0.017 ng/mL (0.000-0.055) Glucose (Fingerstick) 137 mg/dL (70-99) 144 mg/dL (70-99) White Blood Count 5.3 x10^3/uL (4.0-11.0) Red Blood Count 4.26 x10^6/uL (3.50-5.40) Hemoglobin 12.9 g/dL (12.0-15.5) Hematocrit 37.2 % (36.0-47.0) Mean Corpuscular Volume 87 fL (79-100) Mean Corpuscular Hemoglobin 30 pg (25-35) Mean Corpuscular Hemoglobin Concent 35 g/dL (31-37) Red Cell Distribution Width 12.2 % (11.5-14.5) Platelet Count 138 x10^3/uL (140-400) Neutrophils (%) (Auto) 50 % (31-73) Lymphocytes (%) (Auto) 37 % (24-48) Monocytes (%) (Auto) 11 % (0-9) Eosinophils (%) (Auto) 2 % (0-3) Basophils (%) (Auto) 0 % (0-3) Neutrophils # (Auto) 2.7 x10^3/uL (1.8-7.7) Lymphocytes # (Auto) 2.0 x10^3/uL (1.0-4.8) Monocytes # (Auto) 0.6 x10^3/uL (0.0-1.1) Eosinophils # (Auto) 0.1 x10^3/uL (0.0-0.7) Basophils # (Auto) 0.0 x10^3/uL (0.0-0.2) Sodium Level 142 mmol/L (136-145) Potassium Level 3.4 mmol/L (3.5-5.1) Chloride Level 107 mmol/L (98-107) Carbon Dioxide Level 28 mmol/L (21-32) Anion Gap 7 (6-14) Blood Urea Nitrogen 13 mg/dL (7-20) Creatinine 0.6 mg/dL (0.6-1.0) Estimated GFR (Cockcroft-Gault) 107.6 Glucose Level 132 mg/dL (70-99) Calcium Level 8.5 mg/dL (8.5-10.1) Phosphorus Level 4.1 mg/dL (2.6-4.7) Magnesium Level 2.0 mg/dL (1.8-2.4) Laboratory Tests Test 07/15/20 12:06 07/15/20 12:33 07/15/20 15:35 07/15/20 16:55 Urine Collection Type Unknown Urine Color Yellow Urine Clarity Clear Urine pH 5.5 (<5.0-8.0) Urine Specific [place] 1.010 (1.000-1.030) Urine Protein 30 mg/dL (NEG-TRACE) Urine Glucose (UA) Negative mg/dL (NEG) Urine Ketones (Stick) Negative mg/dL (NEG) Urine Blood Negative (NEG) Urine Nitrite Negative (NEG) Urine Bilirubin Negative (NEG) Urine Urobilinogen Dipstick 0.2 mg/dL (0.2 mg/dL) Urine Leukocyte Esterase Negative (NEG) Urine RBC 0 /HPF (0-2) Urine WBC 1-4 /HPF (0-4) Urine Squamous Epithelial Cells Few /LPF Urine Bacteria 0 /HPF (0-FEW) Urine Mucus Mod /LPF Urine Opiates Screen Neg (NEG) Urine Methadone Screen Neg (NEG) Urine Barbiturates Neg (NEG) Urine Phencyclidine Screen Neg (NEG) Urine Amphetamine/Methamphetamine Neg (NEG) Urine Benzodiazepines Screen Neg (NEG) Urine Cocaine Screen Neg (NEG) Urine Cannabinoids Screen Neg (NEG) Urine Ethyl Alcohol Neg (NEG) White Blood Count 6.4 x10^3/uL (4.0-11.0) Red Blood Count 4.80 x10^6/uL (3.50-5.40) Hemoglobin 14.4 g/dL (12.0-15.5) Hematocrit 41.6 % (36.0-47.0) Mean Corpuscular Volume 87 fL (79-100) Mean Corpuscular Hemoglobin 30 pg (25-35) Mean Corpuscular Hemoglobin Concent 35 g/dL (31-37) Red Cell Distribution Width 12.0 % (11.5-14.5) Platelet Count 146 x10^3/uL (140-400) Neutrophils (%) (Auto) 64 % (31-73) Lymphocytes (%) (Auto) 26 % (24-48) Monocytes (%) (Auto) 9 % (0-9) Eosinophils (%) (Auto) 1 % (0-3) Basophils (%) (Auto) 0 % (0-3) Neutrophils # (Auto) 4.1 x10^3/uL (1.8-7.7) Lymphocytes # (Auto) 1.6 x10^3/uL (1.0-4.8) Monocytes # (Auto) 0.6 x10^3/uL (0.0-1.1) Eosinophils # (Auto) 0.1 x10^3/uL (0.0-0.7) Basophils # (Auto) 0.0 x10^3/uL (0.0-0.2) Prothrombin Time 12.6 SEC (11.7-14.0) Prothromb Time International Ratio 1.0 (0.8-1.1) Activated Partial Thromboplast Time 27 SEC (24-38) Sodium Level 139 mmol/L (136-145) Potassium Level 3.6 mmol/L (3.5-5.1) Chloride Level 104 mmol/L (98-107) Carbon Dioxide Level 26 mmol/L (21-32) Anion Gap 9 (6-14) Blood Urea Nitrogen 11 mg/dL (7-20) Creatinine 0.7 mg/dL (0.6-1.0) Estimated GFR (Cockcroft-Gault) 90.1 BUN/Creatinine Ratio 16 (6-20) Glucose Level 172 mg/dL (70-99) Hemoglobin A1c 8.6 % (4.8-5.6) Calcium Level 9.3 mg/dL (8.5-10.1) Magnesium Level 1.5 mg/dL (1.8-2.4) Total Bilirubin 0.5 mg/dL (0.2-1.0) Aspartate Amino Transf (AST/SGOT) 20 U/L (15-37) Alanine Aminotransferase (ALT/SGPT) 35 U/L (14-59) Alkaline Phosphatase 70 U/L (46-116) Troponin I Quantitative < 0.017 ng/mL (0.000-0.055) < 0.017 ng/mL (0.000-0.055) GF-Aqj-Z-Type Natriuretic Peptide 23 pg/mL (0-124) Total Protein 8.4 g/dL (6.4-8.2) Albumin 3.6 g/dL (3.4-5.0) Albumin/Globulin Ratio 0.8 (1.0-1.7) Triglycerides Level 88 mg/dL (0-150) Cholesterol Level 256 mg/dL (0-200) LDL Cholesterol, Calculated 182 mg/dL (0-100) VLDL Cholesterol, Calculated 18 mg/dL (0-40) Non-HDL Cholesterol Calculated 200 mg/dL (0-129) HDL Cholesterol 56 mg/dL (40-60) Cholesterol/HDL Ratio 4.6 Lipase 146 U/L (73-393) Thyroid Stimulating Hormone (TSH) 0.323 uIU/mL (0.358-3.74) Free Thyroxine 1.20 ng/dL (0.76-1.46) Glucose (Fingerstick) 158 mg/dL (70-99) Test 07/15/20 17:40 07/15/20 21:33 07/16/20 03:40 07/16/20 08:04 Troponin I Quantitative < 0.017 ng/mL (0.000-0.055) Glucose (Fingerstick) 137 mg/dL (70-99) 144 mg/dL (70-99) White Blood Count 5.3 x10^3/uL (4.0-11.0) Red Blood Count 4.26 x10^6/uL (3.50-5.40) Hemoglobin 12.9 g/dL (12.0-15.5) Hematocrit 37.2 % (36.0-47.0) Mean Corpuscular Volume 87 fL (79-100) Mean Corpuscular Hemoglobin 30 pg (25-35) Mean Corpuscular Hemoglobin Concent 35 g/dL (31-37) Red Cell Distribution Width 12.2 % (11.5-14.5) Platelet Count 138 x10^3/uL (140-400) Neutrophils (%) (Auto) 50 % (31-73) Lymphocytes (%) (Auto) 37 % (24-48) Monocytes (%) (Auto) 11 % (0-9) Eosinophils (%) (Auto) 2 % (0-3) Basophils (%) (Auto) 0 % (0-3) Neutrophils # (Auto) 2.7 x10^3/uL (1.8-7.7) Lymphocytes # (Auto) 2.0 x10^3/uL (1.0-4.8) Monocytes # (Auto) 0.6 x10^3/uL (0.0-1.1) Eosinophils # (Auto) 0.1 x10^3/uL (0.0-0.7) Basophils # (Auto) 0.0 x10^3/uL (0.0-0.2) Sodium Level 142 mmol/L (136-145) Potassium Level 3.4 mmol/L (3.5-5.1) Chloride Level 107 mmol/L (98-107) Carbon Dioxide Level 28 mmol/L (21-32) Anion Gap 7 (6-14) Blood Urea Nitrogen 13 mg/dL (7-20) Creatinine 0.6 mg/dL (0.6-1.0) Estimated GFR (Cockcroft-Gault) 107.6 Glucose Level 132 mg/dL (70-99) Calcium Level 8.5 mg/dL (8.5-10.1) Phosphorus Level 4.1 mg/dL (2.6-4.7) Magnesium Level 2.0 mg/dL (1.8-2.4) Images Images BRAIN W/O CONTRAST Date: 07/16/2020 8:00 AM Indication: possible CVA, numbness and tingling LUE and LLE Comparison: CT 07/15/2020. Technique: Multiplanar multisequence MRI of the brain was performed without intravenous contrast using the standard protocol. Findings: Small area of restricted diffusion in the right frontoparietal region. No acute or chronic hemorrhage. The ventricles are normal in size and configuration without hydrocephalus. The scalp and calvarium are normal. The pituitary and sella are normal. No Chiari malformation. The visualized upper cervical spine is normal. The visualized orbits and globes are normal. The visualized paranasal sinuses are clear. The mastoid air cells are clear. Normal flow voids within the vertebral, basilar, and internal carotid arteries indicating patency. IMPRESSION: Small area of acute infarct in the right frontoparietal region. No acute hemorrhage. CT angiogram of the head and neck with intravenous contrast. HISTORY: Stroke. TECHNIQUE: Computed tomographic images the head and neck were obtained following the administration of intravenous contrast. Three-dimensional maximum intensity projection images were obtained. COMPARISON: Noncontrast head CT obtained on the same date. FINDINGS: There is a dilated ascending aorta measuring 3.9 cm. This is partially excluded from the [id number]-iaee. There is a standard aortic arch branching pattern. No aortic dissection is seen. There is no pneumothorax. There is posterior dependent atelectasis. There is no suspicious pulmonary nodule. There is a prominent thyroid. No discrete nodule is seen. The parotid and submandibular glands are unremarkable. There are prominent left greater than right submandibular lymph nodes. For reference purposes, there is a left submental lymph node measuring 1.8 cm in maximum transaxial dimension. There is mild partially calcified atherosclerotic plaque involving the proximal left external carotid artery, without associated stenosis. No image of the syndesmosis is seen involving the internal carotid arteries. There is a duplicated right A1 segment or early branching prominent right anterior communicating artery with hypoplastic left A1 segment. There is a patent right posterior communicating artery. The left posterior communicating artery is relatively absent. The right vertebral artery slightly dominant. No aneurysm is seen. No suspicious enhancing lesion is seen. There is no mass effect or midline shift. There is no hydrocephalus. The humphries-white matter differentiation pattern is intact. The recently demonstrated small focus of hyperdensity within the left centrum small bowel is not well seen given the presence of contrast. There is mild paranasal sinus because of thickening with tiny left maxillary sinus mucous retention cysts. The mastoid air cells are clear. The orbits are unremarkable. There is no suspicious osseous lesion. IMPRESSION: 1. No evidence of hemodynamically significant stenosis or aneurysm. There are normal cerebral vascular anatomic variants, described above. 2. Small subtle focus of hyperdensity within the left centrum semiovale, better characterized on the noncontrast exam performed on the same date. This may be due to chronic small vessel disease or a focus of demyelination in a patient of this age. MRI is more sensitive for acute infarction. 3. Mildly dilated ascending aorta measuring 3.9 cm in caliber. This is partially excluded from the [id number]. Assessment/Plan Assessment/Plan Impression: Small area of acute infarct in the right frontoparietal region Possible dilated ascending aorta Recommendations: Echocardiogram Cardiology consultation Aspirin Statin Rehabilitation modalities Discussed with patient and her family. Thank you for letting me help the patient care. SHEELA BARRERA MD Jul 16, 2020 10:53
[2020-07-16] MEDS: ASPIRIN ENTERIC COATED 81 MG TABLET.DR. PO SCH (11:33)
--- NOTE | 2020-07-16 12:55 | PDOC2 ---
CARDIAC CONSULT DATE OF CONSULT Date of Consult DATE: 07/16/20 TIME: 12:49 REASON FOR CONSULT Reason for Consult: dilated ascending aorta, CVA REFERRING PHYSICIAN Referring Physician: Dr. Metzger SOURCE Source: Chart review, Patient HISTORY OF PRESENT ILLNESS HISTORY OF PRESENT ILLNESS This is a 44 yo female who presented with numbness/tingling of her left upper and lower extremity. MRI with acute infarct in the right frontoparietal region. CTA notable for ascending aortic aneurysm. She denies any chest pain, dizziness, diaphoresis, SOA, palpitations, or nausea/vomiting. No prior cardiac history of workup. PAST MEDICAL HISTORY Cardiovascular: HTN PAST SURGICAL HISTORY Past Surgical History: No pertinent history FAMILY HISTORY Family History: Hypertension SOCIAL HISTORY Smoke: No ALCOHOL: none Drugs: None Lives: with Family CURRENT MEDICATIONS CURRENT MEDICATIONS Current Medications Medications (Trade) Dose Ordered Sig/Ramon Route PRN Reason Start Time Stop Time Status Last Admin Dose Admin Aspirin (Aspirin Chewable) 324 mg 1X ONCE PO 07/15/20 14:00 07/15/20 14:04 DC 07/15/20 14:12 Iohexol (Omnipaque 300 Mg/ml) 75 ml 1X ONCE IV 07/15/20 14:30 07/15/20 14:31 DC 07/15/20 14:30 Aspirin (Ecotrin) 81 mg DAILYWBKFT PO 07/16/20 08:00 07/16/20 11:33 Magnesium Sulfate 50 ml @ 25 mls/hr Q24H IV 07/15/20 17:00 07/17/20 18:59 07/15/20 16:57 ALLERGIES ALLERGIES: Coded Allergies: No Known Drug Allergies (Unverified , 07/15/20) ROS Review of System 14 point ROS conducted with pertinent positives noted above in HPI PHYSICAL EXAM General: Alert, Oriented X3, Cooperative, No acute distress HEENT: Mucous membr. moist/pink Lungs: Clear to auscultation Heart: Regular rate Abdomen: Soft, No tenderness Extremities: No edema, Normal pulses Skin: No significant lesion Neuro: Normal speech, Other (altered sensation of left hand ) Psych/Mental Status: Mental status NL, Mood NL MUSCULOSKELETAL: No deformity VITALS/I&O VITALS/I&O: Vital Signs Date Time Temp Pulse Resp B/P (MAP) Pulse Ox O2 Delivery O2 Flow Rate FiO2 07/16/20 07:00 98.4 76 20 118/72 (87) 95 Room Air 98.4 I & O 07/15/20 07/15/20 07/16/20 15:00 23:00 07:00 Intake Total 100 ml 240 ml Balance 100 ml 240 ml LABS Lab: Laboratory Tests Test 07/15/20 15:35 07/15/20 16:55 07/15/20 17:40 07/15/20 21:33 Troponin I Quantitative < 0.017 ng/mL (0.000-0.055) < 0.017 ng/mL (0.000-0.055) Glucose (Fingerstick) 158 mg/dL (70-99) H 137 mg/dL (70-99) H Test 07/16/20 03:40 07/16/20 08:04 07/16/20 12:26 White Blood Count 5.3 x10^3/uL (4.0-11.0) Red Blood Count 4.26 x10^6/uL (3.50-5.40) Hemoglobin 12.9 g/dL (12.0-15.5) Hematocrit 37.2 % (36.0-47.0) Mean Corpuscular Volume 87 fL (79-100) Mean Corpuscular Hemoglobin 30 pg (25-35) Mean Corpuscular Hemoglobin Concent 35 g/dL (31-37) Red Cell Distribution Width 12.2 % (11.5-14.5) Platelet Count 138 x10^3/uL (140-400) L Neutrophils (%) (Auto) 50 % (31-73) Lymphocytes (%) (Auto) 37 % (24-48) Monocytes (%) (Auto) 11 % (0-9) H Eosinophils (%) (Auto) 2 % (0-3) Basophils (%) (Auto) 0 % (0-3) Neutrophils # (Auto) 2.7 x10^3/uL (1.8-7.7) Lymphocytes # (Auto) 2.0 x10^3/uL (1.0-4.8) Monocytes # (Auto) 0.6 x10^3/uL (0.0-1.1) Eosinophils # (Auto) 0.1 x10^3/uL (0.0-0.7) Basophils # (Auto) 0.0 x10^3/uL (0.0-0.2) Sodium Level 142 mmol/L (136-145) Potassium Level 3.4 mmol/L (3.5-5.1) L Chloride Level 107 mmol/L (98-107) Carbon Dioxide Level 28 mmol/L (21-32) Anion Gap 7 (6-14) Blood Urea Nitrogen 13 mg/dL (7-20) Creatinine 0.6 mg/dL (0.6-1.0) Estimated GFR (Cockcroft-Gault) 107.6 Glucose Level 132 mg/dL (70-99) H Calcium Level 8.5 mg/dL (8.5-10.1) Phosphorus Level 4.1 mg/dL (2.6-4.7) Magnesium Level 2.0 mg/dL (1.8-2.4) Glucose (Fingerstick) 144 mg/dL (70-99) H 145 mg/dL (70-99) H Laboratory Tests 07/16/20 03:40 Laboratory Tests 07/16/20 03:40 ASSESSMENT/PLAN ASSESSMENT/PLAN 1. Numbness/tingling of left upper and lower ext; MRI with acute right frontoparietal infarct 2. Ascending aortic aneurysm; 3.9 cm per CTA 3. Hypertension; controlled 4. Hyperlipidemia; LDL 182 5. Diabetes, II; new onset. as per PCP Recommendations Secondary prevention; ASA/statin therapy Echo with bubble to evaluate LV systolic function and structural anomalies Supportive care NELLY MCCOY APRN Jul 16, 2020 12:55
[2020-07-16 15:01] VITALS: BP 114/94
--- NOTE | 2020-07-16 16:19 | CARD ---
MR#: [id number] Date of Study: 07/16/2020 Ordering Physician: SHEELA BARRERA, Referring Physician: SHEELA BARRERA, Tech: Litzy Flores APPROVED REPORT EXAM: Two-dimensional echocardiogram with contrast. Other Information Quality : AverageHR: 78bpm INDICATION CVA/TIA Echo Enhancing Agent Indication: Rule Out Septal Defect Agent/Amount Used: Agitated Saline 10mL 2D DIMENSIONS RVDd3.3 (2.9-3.5cm)Left Atrium(2D)3.1 (1.6-4.0cm) IVSd1.0 (0.7-1.1cm)Aortic Root(2D)3.4 (2.0-3.7cm) LVDd4.4 (3.9-5.9cm)LVOT Diameter2.2 (1.8-2.4cm) PWd0.8 (0.7-1.1cm)LVDs3.1 (2.5-4.0cm) FS (%) 30.2 %SV51.8 ml LVEF(%)57.7 (>50%) Aortic Valve AoV Peak Marcel.135.2cm/sAoV VTI22.4cm AO Peak GR.7.3mmHgLVOT Peak Marcel.94.3cm/s LVOT VTI 19.05cmAO Mean GR.4mmHg TOO (VMAX)2.75km7YRT (VTI)3.27cm2 Mitral Valve MV E Wgfxtkui01.9cm/sMV DECEL VAWX924wq MV A Gafgkokh37.1cm/sMV E Mean Gr.2mmHg MV DTN68umS/A Ratio0.6 MVA (PHT)2.79cm2 TDI E/Lateral E'9.8E/Medial E'9.4 Pulmonary Valve PV Peak Xhcnixcf87.3cm/sPV Peak Grad.4mmHg Tricuspid Valve TR P. Xaxovqym580za/sRAP YIHDAUHB6npEn TR Peak Gr.66mwXfGAEF38tcDc Pulmonary Vein S1 Oncrhmkv76.8cm/sD2 Bqfksbzt86.9cm/s PVa blwvhnue228hcjg LEFT VENTRICLE The left ventricle is normal size. There is normal left ventricular wall thickness. The left ventricu lar systolic function is normal. The Ejection Fraction is 55-60%. There is normal LV segmental wall m otion. Transmitral Doppler flow pattern is Grade I-abnormal relaxation pattern. RIGHT VENTRICLE The right ventricle is normal size. There is normal right ventricular wall thickness. The right ventr icular systolic function is normal. ATRIA The left atrium size is normal. The right atrium size is normal. The interatrial septum is intact wit h no evidence for an atrial septal defect or patent foramen ovale as noted on 2-D or Doppler imaging. Bubble study negative for interatrial shunt. AORTIC VALVE The aortic valve is thickened but opens well. Doppler and Color Flow revealed no significant aortic r egurgitation. Calculated aortic valve area is 3.63 cm2 with maximum pressure gradient of 8 mmHg and m britta pressure gradient of 5 mmHg. There is no significant aortic valvular stenosis. MITRAL VALVE The mitral valve is normal in structure and function. There is no evidence of mitral valve prolapse. There is no mitral valve stenosis. Doppler and Color-flow revealed trace mitral regurgitation. TRICUSPID VALVE The tricuspid valve is normal in structure and function. Doppler and Color Flow revealed trace tricus pid regurgitation with an estimated PAP of 35 mmHg. There is no tricuspid valve stenosis. PULMONIC VALVE The pulmonic valve is not well visualized. Doppler and Color Flow revealed trace pulmonic valvular re gurgitation. GREAT VESSELS The aortic root is normal in size. The ascending aorta is Mildly dilated measuring 3.6 cm. The IVC is normal in size and collapses >50% with inspiration. PERICARDIAL EFFUSION There is no evidence of significant pericardial effusion. Critical Notification Critical Value: No <Conclusion> The left ventricular systolic function is normal. The Ejection Fraction is 55-60%. There is normal LV segmental wall motion. Transmitral Doppler flow pattern is Grade I-abnormal relaxation pattern. Trace mitral regurgitation. Trace tricuspid regurgitation with an estimated PAP of 35 mmHg. There is no evidence of significant pericardial effusion. Bubble study negative for interatrial shunt. Signed by : Trino Mccurdy, Electronically Approved : 07/16/2020 16:19:09
--- NOTE | 2020-07-16 16:28 | NUR ---
SW following. Spoke with RN and reviewed chart. Pt from home. Pt currently on IV Dextrose, room air, ADA diet. Pt is self-pay and [facility] is following. Pt to have MRI today. No anticipated SW needs at discharge.
[2020-07-16] MEDS: MAGNESIUM SULFATE 2GM 50 ML IV SCH (17:00)
--- NOTE | 2020-07-16 17:31 | PDOC ---
[employer] PROGRESS NOTE Date of Service DOS: DATE: 07/16/20 TIME: 17:30 Chief Complaint Chief Complaint Left-sided numbness History of Present Illness History of Present Illness Patient evaluated with family at bedside. Patient reports improvement in her left hand and left lower extremity numbness. Discussed her MRI results that show evidence of CVA. She will likely need rehab. Echo pending. Discussed with RN. Vitals/I&O Vitals/I&O: Vital Signs Date Time Temp Pulse Resp B/P (MAP) Pulse Ox O2 Delivery O2 Flow Rate FiO2 07/16/20 15:01 97.8 80 20 114/94 (101) 93 Room Air 97.8 I & O 07/15/20 07/15/20 07/16/20 15:00 23:00 07:00 Intake Total 100 ml 240 ml Balance 100 ml 240 ml Physical Exam General: Alert, Oriented X3, Cooperative, No acute distress Heart: Regular rate Abdomen: Soft, No tenderness Extremities: No edema, Normal pulses Skin: No significant lesion Labs Labs: Laboratory Tests Test 07/15/20 17:40 07/15/20 21:33 07/16/20 03:40 07/16/20 08:04 Troponin I Quantitative < 0.017 ng/mL (0.000-0.055) Glucose (Fingerstick) 137 mg/dL (70-99) 144 mg/dL (70-99) White Blood Count 5.3 x10^3/uL (4.0-11.0) Red Blood Count 4.26 x10^6/uL (3.50-5.40) Hemoglobin 12.9 g/dL (12.0-15.5) Hematocrit 37.2 % (36.0-47.0) Mean Corpuscular Volume 87 fL (79-100) Mean Corpuscular Hemoglobin 30 pg (25-35) Mean Corpuscular Hemoglobin Concent 35 g/dL (31-37) Red Cell Distribution Width 12.2 % (11.5-14.5) Platelet Count 138 x10^3/uL (140-400) Neutrophils (%) (Auto) 50 % (31-73) Lymphocytes (%) (Auto) 37 % (24-48) Monocytes (%) (Auto) 11 % (0-9) Eosinophils (%) (Auto) 2 % (0-3) Basophils (%) (Auto) 0 % (0-3) Neutrophils # (Auto) 2.7 x10^3/uL (1.8-7.7) Lymphocytes # (Auto) 2.0 x10^3/uL (1.0-4.8) Monocytes # (Auto) 0.6 x10^3/uL (0.0-1.1) Eosinophils # (Auto) 0.1 x10^3/uL (0.0-0.7) Basophils # (Auto) 0.0 x10^3/uL (0.0-0.2) Sodium Level 142 mmol/L (136-145) Potassium Level 3.4 mmol/L (3.5-5.1) Chloride Level 107 mmol/L (98-107) Carbon Dioxide Level 28 mmol/L (21-32) Anion Gap 7 (6-14) Blood Urea Nitrogen 13 mg/dL (7-20) Creatinine 0.6 mg/dL (0.6-1.0) Estimated GFR (Cockcroft-Gault) 107.6 Glucose Level 132 mg/dL (70-99) Calcium Level 8.5 mg/dL (8.5-10.1) Phosphorus Level 4.1 mg/dL (2.6-4.7) Magnesium Level 2.0 mg/dL (1.8-2.4) Test 07/16/20 12:26 07/16/20 17:08 Glucose (Fingerstick) 145 mg/dL (70-99) 134 mg/dL (70-99) Assessment and Plan Assessmemt and Plan Problems Medical Problems: (1) CVA (cerebral vascular accident) Status: Acute (2) HTN (hypertension) Status: Acute Comment Review of Relevant I have reviewed the following items mckayla (where applicable) has been applied. Medications: Current Medications Medications (Trade) Dose Ordered Sig/Ramon Route PRN Reason Start Time Stop Time Status Last Admin Dose Admin Aspirin (Ecotrin) 81 mg DAILYWBKFT PO 07/16/20 08:00 07/16/20 11:33 Justifications for Admission Other Justification Acute stroke CINTHYA DISLA MD Jul 16, 2020 17:31
[2020-07-16 19:00] VITALS: BP 147/96
[2020-07-16] MEDS: ATORVASTATIN CALCIUM 40 MG TABLET. PO SCH (21:31)
[2020-07-16 23:00] VITALS: BP 110/76
[2020-07-17 03:00] VITALS: BP 109/75
[2020-07-17 06:25] LABS: BASO % 0 % (0-3); EOS # 0.1 x10^3/uL (0.0-0.7); EOS % 3 % (0-3); HEMATOCRIT 39.9 % (36.0-47.0); HEMOGLOBIN 13.5 g/dL (12.0-15.5); LYMPH # 2.2 x10^3/uL (1.0-4.8); LYMPH % 40 % (24-48); MEAN CORPUSCULAR HEMOGLOBIN 30 pg (25-35); MEAN CORPUSCULAR HGB CONC 34 g/dL (31-37); MEAN CORPUSCULAR VOLUME 88 fL (79-100); MONO # 0.6 x10^3/uL (0.0-1.1); MONO % 11 % (0-9); NEUT # 2.5 x10^3/uL (1.8-7.7); NEUT % 46 % (31-73); PLATELET COUNT 142 x10^3/uL (140-400); RED BLOOD COUNT 4.53 x10^6/uL (3.50-5.40); RED CELL DISTRIBUTION WIDTH 12.3 % (11.5-14.5); WHITE BLOOD COUNT 5.4 x10^3/uL (4.0-11.0)
[2020-07-17 06:27] LABS: CALCIUM 8.8 mg/dL (8.5-10.1); CREATININE 0.6 mg/dL (0.6-1.0); GFR 107.6; POTASSIUM 3.9 mmol/L (3.5-5.1)
[2020-07-17 07:24] VITALS: BP 145/83
[2020-07-17] MEDS: ASPIRIN ENTERIC COATED 81 MG TABLET.DR. PO SCH (08:00)
[2020-07-17] MEDS: INSULIN LISPRO 300 UNITS/3 ML VIAL. SQ SCH ×2 (08:00→12:00)
[2020-07-17 11:21] VITALS: BP 128/74
--- NOTE | 2020-07-17 11:48 | PDOC ---
PROGRESS NOTES Date of Service DATE: 07/17/20 TIME: 11:44 Assessment Problems Medical Problems: (1) CVA (cerebral vascular accident) Status: Acute (2) HTN (hypertension) Status: Acute Small area of acute infarct in the right frontoparietal region Ascending aortic aneurysm; 3.9 cm per CTA Plan Aspirin Statin, discussed risks of liver and muscle damage Does not need any inpatient or outpatient rehab.Can do home exercise program. Follow-up with primary physician Follow-up with neurology as needed. Secondary stroke prevention discussed. Fully discussed with patient using [place] court interpreter by phone Subjective Feels much better, wants to go home. Objective Vital Signs Date Time Temp Pulse Resp B/P (MAP) Pulse Ox O2 Delivery O2 Flow Rate FiO2 07/17/20 11:21 98.3 72 21 128/74 (92) 99 Room Air 98.3 Intake and Output 07/17/20 07:00 Intake Total 480 ml Balance 480 ml Intake Oral 480 ml # Voids 2 PHYSICAL EXAM Alert. Oriented to time, place and person. PERRL. EOMI. CN: no focal findings. Muscle tone: normal. Muscle strength: 5/5, minimal left pronator drift now DTR: 2+ Plantar reflex: flexor Gait: normal. Sensory exam: no abnormal findings. No cerebellar signs elicited. Review of Relevant I have reviewed the following items mckayla (where applicable) has been applied. Labs Laboratory Tests Test 07/15/20 12:06 07/15/20 12:33 07/15/20 15:35 07/15/20 16:55 Urine Collection Type Unknown Urine Color Yellow Urine Clarity Clear Urine pH 5.5 (<5.0-8.0) Urine Specific Effie 1.010 (1.000-1.030) Urine Protein 30 mg/dL (NEG-TRACE) Urine Glucose (UA) Negative mg/dL (NEG) Urine Ketones (Stick) Negative mg/dL (NEG) Urine Blood Negative (NEG) Urine Nitrite Negative (NEG) Urine Bilirubin Negative (NEG) Urine Urobilinogen Dipstick 0.2 mg/dL (0.2 mg/dL) Urine Leukocyte Esterase Negative (NEG) Urine RBC 0 /HPF (0-2) Urine WBC 1-4 /HPF (0-4) Urine Squamous Epithelial Cells Few /LPF Urine Bacteria 0 /HPF (0-FEW) Urine Mucus Mod /LPF Urine Opiates Screen Neg (NEG) Urine Methadone Screen Neg (NEG) Urine Barbiturates Neg (NEG) Urine Phencyclidine Screen Neg (NEG) Urine Amphetamine/Methamphetamine Neg (NEG) Urine Benzodiazepines Screen Neg (NEG) Urine Cocaine Screen Neg (NEG) Urine Cannabinoids Screen Neg (NEG) Urine Ethyl Alcohol Neg (NEG) White Blood Count 6.4 x10^3/uL (4.0-11.0) Red Blood Count 4.80 x10^6/uL (3.50-5.40) Hemoglobin 14.4 g/dL (12.0-15.5) Hematocrit 41.6 % (36.0-47.0) Mean Corpuscular Volume 87 fL (79-100) Mean Corpuscular Hemoglobin 30 pg (25-35) Mean Corpuscular Hemoglobin Concent 35 g/dL (31-37) Red Cell Distribution Width 12.0 % (11.5-14.5) Platelet Count 146 x10^3/uL (140-400) Neutrophils (%) (Auto) 64 % (31-73) Lymphocytes (%) (Auto) 26 % (24-48) Monocytes (%) (Auto) 9 % (0-9) Eosinophils (%) (Auto) 1 % (0-3) Basophils (%) (Auto) 0 % (0-3) Neutrophils # (Auto) 4.1 x10^3/uL (1.8-7.7) Lymphocytes # (Auto) 1.6 x10^3/uL (1.0-4.8) Monocytes # (Auto) 0.6 x10^3/uL (0.0-1.1) Eosinophils # (Auto) 0.1 x10^3/uL (0.0-0.7) Basophils # (Auto) 0.0 x10^3/uL (0.0-0.2) Prothrombin Time 12.6 SEC (11.7-14.0) Prothromb Time International Ratio 1.0 (0.8-1.1) Activated Partial Thromboplast Time 27 SEC (24-38) Sodium Level 139 mmol/L (136-145) Potassium Level 3.6 mmol/L (3.5-5.1) Chloride Level 104 mmol/L (98-107) Carbon Dioxide Level 26 mmol/L (21-32) Anion Gap 9 (6-14) Blood Urea Nitrogen 11 mg/dL (7-20) Creatinine 0.7 mg/dL (0.6-1.0) Estimated GFR (Cockcroft-Gault) 90.1 BUN/Creatinine Ratio 16 (6-20) Glucose Level 172 mg/dL (70-99) Hemoglobin A1c 8.6 % (4.8-5.6) Calcium Level 9.3 mg/dL (8.5-10.1) Magnesium Level 1.5 mg/dL (1.8-2.4) Total Bilirubin 0.5 mg/dL (0.2-1.0) Aspartate Amino Transf (AST/SGOT) 20 U/L (15-37) Alanine Aminotransferase (ALT/SGPT) 35 U/L (14-59) Alkaline Phosphatase 70 U/L (46-116) Troponin I Quantitative < 0.017 ng/mL (0.000-0.055) < 0.017 ng/mL (0.000-0.055) QD-Ziq-N-Type Natriuretic Peptide 23 pg/mL (0-124) Total Protein 8.4 g/dL (6.4-8.2) Albumin 3.6 g/dL (3.4-5.0) Albumin/Globulin Ratio 0.8 (1.0-1.7) Triglycerides Level 88 mg/dL (0-150) Cholesterol Level 256 mg/dL (0-200) LDL Cholesterol, Calculated 182 mg/dL (0-100) VLDL Cholesterol, Calculated 18 mg/dL (0-40) Non-HDL Cholesterol Calculated 200 mg/dL (0-129) HDL Cholesterol 56 mg/dL (40-60) Cholesterol/HDL Ratio 4.6 Lipase 146 U/L (73-393) Thyroid Stimulating Hormone (TSH) 0.323 uIU/mL (0.358-3.74) Free Thyroxine 1.20 ng/dL (0.76-1.46) Glucose (Fingerstick) 158 mg/dL (70-99) Test 07/15/20 17:40 07/15/20 21:33 07/16/20 03:40 07/16/20 08:04 Troponin I Quantitative < 0.017 ng/mL (0.000-0.055) Glucose (Fingerstick) 137 mg/dL (70-99) 144 mg/dL (70-99) White Blood Count 5.3 x10^3/uL (4.0-11.0) Red Blood Count 4.26 x10^6/uL (3.50-5.40) Hemoglobin 12.9 g/dL (12.0-15.5) Hematocrit 37.2 % (36.0-47.0) Mean Corpuscular Volume 87 fL (79-100) Mean Corpuscular Hemoglobin 30 pg (25-35) Mean Corpuscular Hemoglobin Concent 35 g/dL (31-37) Red Cell Distribution Width 12.2 % (11.5-14.5) Platelet Count 138 x10^3/uL (140-400) Neutrophils (%) (Auto) 50 % (31-73) Lymphocytes (%) (Auto) 37 % (24-48) Monocytes (%) (Auto) 11 % (0-9) Eosinophils (%) (Auto) 2 % (0-3) Basophils (%) (Auto) 0 % (0-3) Neutrophils # (Auto) 2.7 x10^3/uL (1.8-7.7) Lymphocytes # (Auto) 2.0 x10^3/uL (1.0-4.8) Monocytes # (Auto) 0.6 x10^3/uL (0.0-1.1) Eosinophils # (Auto) 0.1 x10^3/uL (0.0-0.7) Basophils # (Auto) 0.0 x10^3/uL (0.0-0.2) Sodium Level 142 mmol/L (136-145) Potassium Level 3.4 mmol/L (3.5-5.1) Chloride Level 107 mmol/L (98-107) Carbon Dioxide Level 28 mmol/L (21-32) Anion Gap 7 (6-14) Blood Urea Nitrogen 13 mg/dL (7-20) Creatinine 0.6 mg/dL (0.6-1.0) Estimated GFR (Cockcroft-Gault) 107.6 Glucose Level 132 mg/dL (70-99) Calcium Level 8.5 mg/dL (8.5-10.1) Phosphorus Level 4.1 mg/dL (2.6-4.7) Magnesium Level 2.0 mg/dL (1.8-2.4) Test 07/16/20 12:26 07/16/20 17:08 07/16/20 20:25 07/17/20 05:00 Glucose (Fingerstick) 145 mg/dL (70-99) 134 mg/dL (70-99) 192 mg/dL (70-99) White Blood Count 5.4 x10^3/uL (4.0-11.0) Red Blood Count 4.53 x10^6/uL (3.50-5.40) Hemoglobin 13.5 g/dL (12.0-15.5) Hematocrit 39.9 % (36.0-47.0) Mean Corpuscular Volume 88 fL (79-100) Mean Corpuscular Hemoglobin 30 pg (25-35) Mean Corpuscular Hemoglobin Concent 34 g/dL (31-37) Red Cell Distribution Width 12.3 % (11.5-14.5) Platelet Count 142 x10^3/uL (140-400) Neutrophils (%) (Auto) 46 % (31-73) Lymphocytes (%) (Auto) 40 % (24-48) Monocytes (%) (Auto) 11 % (0-9) Eosinophils (%) (Auto) 3 % (0-3) Basophils (%) (Auto) 0 % (0-3) Neutrophils # (Auto) 2.5 x10^3/uL (1.8-7.7) Lymphocytes # (Auto) 2.2 x10^3/uL (1.0-4.8) Monocytes # (Auto) 0.6 x10^3/uL (0.0-1.1) Eosinophils # (Auto) 0.1 x10^3/uL (0.0-0.7) Basophils # (Auto) 0.0 x10^3/uL (0.0-0.2) Sodium Level 141 mmol/L (136-145) Potassium Level 3.9 mmol/L (3.5-5.1) Chloride Level 106 mmol/L (98-107) Carbon Dioxide Level 28 mmol/L (21-32) Anion Gap 7 (6-14) Blood Urea Nitrogen 23 mg/dL (7-20) Creatinine 0.6 mg/dL (0.6-1.0) Estimated GFR (Cockcroft-Gault) 107.6 Glucose Level 190 mg/dL (70-99) Calcium Level 8.8 mg/dL (8.5-10.1) Magnesium Level 2.1 mg/dL (1.8-2.4) Free Triiodothyronine (T3) pg/mL 2.20 pg/mL (2.18-3.98) Test 07/17/20 07:46 Glucose (Fingerstick) 198 mg/dL (70-99) Laboratory Tests Test 07/16/20 12:26 07/16/20 17:08 07/16/20 20:25 07/17/20 05:00 Glucose (Fingerstick) 145 mg/dL (70-99) 134 mg/dL (70-99) 192 mg/dL (70-99) White Blood Count 5.4 x10^3/uL (4.0-11.0) Red Blood Count 4.53 x10^6/uL (3.50-5.40) Hemoglobin 13.5 g/dL (12.0-15.5) Hematocrit 39.9 % (36.0-47.0) Mean Corpuscular Volume 88 fL (79-100) Mean Corpuscular Hemoglobin 30 pg (25-35) Mean Corpuscular Hemoglobin Concent 34 g/dL (31-37) Red Cell Distribution Width 12.3 % (11.5-14.5) Platelet Count 142 x10^3/uL (140-400) Neutrophils (%) (Auto) 46 % (31-73) Lymphocytes (%) (Auto) 40 % (24-48) Monocytes (%) (Auto) 11 % (0-9) Eosinophils (%) (Auto) 3 % (0-3) Basophils (%) (Auto) 0 % (0-3) Neutrophils # (Auto) 2.5 x10^3/uL (1.8-7.7) Lymphocytes # (Auto) 2.2 x10^3/uL (1.0-4.8) Monocytes # (Auto) 0.6 x10^3/uL (0.0-1.1) Eosinophils # (Auto) 0.1 x10^3/uL (0.0-0.7) Basophils # (Auto) 0.0 x10^3/uL (0.0-0.2) Sodium Level 141 mmol/L (136-145) Potassium Level 3.9 mmol/L (3.5-5.1) Chloride Level 106 mmol/L (98-107) Carbon Dioxide Level 28 mmol/L (21-32) Anion Gap 7 (6-14) Blood Urea Nitrogen 23 mg/dL (7-20) Creatinine 0.6 mg/dL (0.6-1.0) Estimated GFR (Cockcroft-Gault) 107.6 Glucose Level 190 mg/dL (70-99) Calcium Level 8.8 mg/dL (8.5-10.1) Magnesium Level 2.1 mg/dL (1.8-2.4) Free Triiodothyronine (T3) pg/mL 2.20 pg/mL (2.18-3.98) Test 07/17/20 07:46 Glucose (Fingerstick) 198 mg/dL (70-99) Medications Current Medications Labetalol HCl (Normodyne Iv Push) 10 mg 1X ONCE IVP Last administered on 07/15/20at 12:52; Start 07/15/20 at 12:45; Stop 07/15/20 at 12:46; Status DC Aspirin (Aspirin Chewable) 324 mg 1X ONCE PO Last administered on 07/15/20at 14:12; Start 07/15/20 at 14:00; Stop 07/15/20 at 14:04; Status DC Iohexol (Omnipaque 300 Mg/ml) 75 ml 1X ONCE IV Last administered on 07/15/20at 14:30; Start 07/15/20 at 14:30; Stop 07/15/20 at 14:31; Status DC Ondansetron HCl (Zofran) 4 mg PRN Q8HRS PRN IV NAUSEA/VOMITING; Start 07/15/20 at 14:45; Stop 07/16/20 at 14:44; Status DC Morphine Sulfate (Morphine Sulfate) 2 mg PRN Q2HR PRN IV PAIN; Start 07/15/20 at 14:45; Stop 07/16/20 at 14:44; Status DC Sennosides (Senna) 17.2 mg PRN BID PRN PO CONSTIPATION; Start 07/15/20 at 15:00 Docusate Sodium (Colace) 100 mg PRN DAILY PRN PO HARD STOOLS Last administered on 07/16/20at 21:31; Start 07/15/20 at 15:00 Ondansetron HCl (Zofran) 4 mg PRN Q6HRS PRN IVP NAUSEA/VOMITING; Start 07/15/20 at 15:00 Potassium Chloride (Klor-Con) 40 meq 1X PRN PO PER PROTOCOL; Start 07/15/20 at 15:00; Status UNV Magnesium Oxide (Magnesium Oxide) 400 mg BID PO ; Start 07/15/20 at 21:00; Stop 07/17/20 at 09:01; Status UNV Potassium Chloride/Water 100 ml @ 100 mls/hr Q1H IV ; Start 07/15/20 at 15:00; Stop 07/15/20 at 18:59; Status UNV Magnesium Sulfate 50 ml @ 25 mls/hr Q24H IV ; Start 07/15/20 at 15:00; Stop 07/17/20 at 16:59; Status UNV Potassium Chloride/Water 100 ml @ 100 mls/hr Q1H PRN IV low k; Start 07/15/20 at 15:00; Status UNV Aspirin (Ecotrin) 81 mg DAILYWBKFT PO Last administered on 07/16/20at 11:33; Start 07/16/20 at 08:00 Insulin Human Lispro (HumaLOG) 0-5 UNITS TIDWMEALS SQ ; Start 07/15/20 at 17:00 Dextrose (Dextrose 50%-Water Syringe) 12.5 gm PRN Q15MIN PRN IV SEE COMMENTS; Start 07/15/20 at 15:00 Acetaminophen (Tylenol) 650 mg PRN Q4HRS PRN PO TEMP OVER 100.4F OR MILD PAIN Last administered on 07/16/20at 21:31; Start 07/15/20 at 15:00 Info (Non-Icu Electrolyte Protocol) 1 ea CONT PRN PRN MC PER PROTOCOL; Start 07/15/20 at 15:15 Atorvastatin Calcium (Lipitor) 40 mg QHS PO Last administered on 07/16/20at 21:31; Start 07/15/20 at 21:00 Magnesium Sulfate 50 ml @ 25 mls/hr Q24H IV Last administered on 07/15/20at 16:57; Start 07/15/20 at 17:00; Stop 07/17/20 at 18:59 Vitals/I & O Vital Sign - Last 24 Hours 07/16/20 07/16/20 07/16/20 07/16/20 15:01 19:00 20:00 23:00 Temp 97.8 98.1 98.3 97.8 98.1 98.3 Pulse 80 95 83 Resp 20 20 18 B/P (MAP) 114/94 (101) 147/96 (113) 110/76 (87) Pulse Ox 93 93 97 O2 Delivery Room Air Room Air Room Air Room Air 07/17/20 07/17/20 07/17/20 03:00 07:24 11:21 Temp 98.0 98.1 98.3 98.0 98.1 98.3 Pulse 84 69 72 Resp 18 21 21 B/P (MAP) 109/75 (86) 145/83 (103) 128/74 (92) Pulse Ox 97 96 99 O2 Delivery Room Air Room Air Room Air Intake and Output 07/16/20 07/16/20 07/17/20 15:00 23:00 07:00 Intake Total 180 ml 300 ml 0 ml Balance 180 ml 300 ml 0 ml Images Echocardiogram: LEFT VENTRICLE The left ventricle is normal size. There is normal left ventricular wall thickness. The left ventricular systolic function is normal. The Ejection Fraction is 55-60%. There is normal LV segmental wall motion. Transmitral Doppler flow pattern is Grade I-abnormal relaxation pattern. RIGHT VENTRICLE The right ventricle is normal size. There is normal right ventricular wall thickness. The right ventricular systolic function is normal. ATRIA The left atrium size is normal. The right atrium size is normal. The interatrial septum is intact with no evidence for an atrial septal defect or patent foramen ovale as noted on 2-D or Doppler imaging. Bubble study negative for interatrial shunt. AORTIC VALVE The aortic valve is thickened but opens well. Doppler and Color Flow revealed no significant aortic regurgitation. Calculated aortic valve area is 3.63 cm2 with maximum pressure gradient of 8 mmHg and mean pressure gradient of 5 mmHg. There is no significant aortic valvular stenosis. MITRAL VALVE The mitral valve is normal in structure and function. There is no evidence of mitral valve prolapse. There is no mitral valve stenosis. Doppler and Color-flow revealed trace mitral regurgitation. TRICUSPID VALVE The tricuspid valve is normal in structure and function. Doppler and Color Flow revealed trace tricuspid regurgitation with an estimated PAP of 35 mmHg. There is no tricuspid valve stenosis. PULMONIC VALVE The pulmonic valve is not well visualized. Doppler and Color Flow revealed trace pulmonic valvular regurgitation. GREAT VESSELS The aortic root is normal in size. The ascending aorta is Mildly dilated measuring 3.6 cm. The IVC is normal in size and collapses >50% with inspiration. PERICARDIAL EFFUSION There is no evidence of significant pericardial effusion. Critical Notification Critical Value: No <Conclusion> The left ventricular systolic function is normal. The Ejection Fraction is 55-60%. There is normal LV segmental wall motion. Transmitral Doppler flow pattern is Grade I-abnormal relaxation pattern. Trace mitral regurgitation. Trace tricuspid regurgitation with an estimated PAP of 35 mmHg. There is no evidence of significant pericardial effusion. Bubble study negative for interatrial shunt. Justicifation of Admission Dx: Justifications for Admission: Justification of Admission Dx: Yes Stroke - Ischemic: Stroke-Ischemic SHEELA BARRERA MD Jul 17, 2020 11:48
--- NOTE | 2020-07-17 12:29 | PDOC ---
CARDIO Progress Notes Date and Time Date of Service 07/17/20 Time of Evaluation 1220 Subjective Subjective: No Chest Pain, No shortness of breath, No Palpitations Vitals Vitals Vital Signs Date Time Temp Pulse Resp B/P (MAP) Pulse Ox O2 Delivery O2 Flow Rate FiO2 07/17/20 11:21 98.3 72 21 128/74 (92) 99 Room Air 98.3 Weight Weight [ ] Input and Output Intake and Output Intake and Output 07/17/20 07:00 Intake Total 480 ml Balance 480 ml Intake Oral 480 ml # Voids 2 Laboratory Labs Laboratory Tests Test 07/16/20 17:08 07/16/20 20:25 07/17/20 05:00 07/17/20 07:46 Glucose (Fingerstick) 134 mg/dL (70-99) 192 mg/dL (70-99) 198 mg/dL (70-99) White Blood Count 5.4 x10^3/uL (4.0-11.0) Red Blood Count 4.53 x10^6/uL (3.50-5.40) Hemoglobin 13.5 g/dL (12.0-15.5) Hematocrit 39.9 % (36.0-47.0) Mean Corpuscular Volume 88 fL (79-100) Mean Corpuscular Hemoglobin 30 pg (25-35) Mean Corpuscular Hemoglobin Concent 34 g/dL (31-37) Red Cell Distribution Width 12.3 % (11.5-14.5) Platelet Count 142 x10^3/uL (140-400) Neutrophils (%) (Auto) 46 % (31-73) Lymphocytes (%) (Auto) 40 % (24-48) Monocytes (%) (Auto) 11 % (0-9) Eosinophils (%) (Auto) 3 % (0-3) Basophils (%) (Auto) 0 % (0-3) Neutrophils # (Auto) 2.5 x10^3/uL (1.8-7.7) Lymphocytes # (Auto) 2.2 x10^3/uL (1.0-4.8) Monocytes # (Auto) 0.6 x10^3/uL (0.0-1.1) Eosinophils # (Auto) 0.1 x10^3/uL (0.0-0.7) Basophils # (Auto) 0.0 x10^3/uL (0.0-0.2) Sodium Level 141 mmol/L (136-145) Potassium Level 3.9 mmol/L (3.5-5.1) Chloride Level 106 mmol/L (98-107) Carbon Dioxide Level 28 mmol/L (21-32) Anion Gap 7 (6-14) Blood Urea Nitrogen 23 mg/dL (7-20) Creatinine 0.6 mg/dL (0.6-1.0) Estimated GFR (Cockcroft-Gault) 107.6 Glucose Level 190 mg/dL (70-99) Calcium Level 8.8 mg/dL (8.5-10.1) Magnesium Level 2.1 mg/dL (1.8-2.4) Free Triiodothyronine (T3) pg/mL 2.20 pg/mL (2.18-3.98) Test 07/17/20 12:10 Glucose (Fingerstick) 135 mg/dL (70-99) Physical Exam HEENT: Neck Supple W Full Motion Chest: Symmetric LUNGS: Clear to Auscultation Heart: RRR Abdomen: Soft N/T Extremities: No Edema Neurology: alert, oriented, follow commands Assessment Assessment 1. Numbness/tingling of left upper and lower ext; MRI with acute right frontoparietal infarct. Echo with preserved LV systolic function. Bubble study negative 2. Ascending aortic aneurysm; 3.9 cm per CTA 3. Hypertension; controlled 4. Hyperlipidemia; LDL 182 5. Diabetes, II; new onset. as per PCP Recommendations Secondary prevention; ASA/statin therapy Rehab modalities Outpatient monitoring of AAA Supportive care Justicifation of Admission Dx: Justifications for Admission: Justification of Admission Dx: Yes Stroke - Ischemic: Stroke-Ischemic NELLY MCCOY APRN Jul 17, 2020 12:28
--- NOTE | 2020-07-17 13:17 | PDOC ---
[facility] PROGRESS NOTE Date of Service DOS: DATE: 07/17/20 TIME: 13:16 Chief Complaint Chief Complaint Left-sided numbness History of Present Illness History of Present Illness Patient evaluated with family at bedside. Her weakness is improved. Discussed echo results with ejection fraction of 55 to 60%, negative bubble study, elevated pulmonary artery pressures suggestive of pulmonary hypertension. Will discharge with aspirin and statin. Vitals/I&O Vitals/I&O: Vital Signs Date Time Temp Pulse Resp B/P (MAP) Pulse Ox O2 Delivery O2 Flow Rate FiO2 07/17/20 11:21 98.3 72 21 128/74 (92) 99 Room Air 98.3 I & O 07/16/20 07/16/20 07/17/20 15:00 23:00 07:00 Intake Total 180 ml 300 ml 0 ml Balance 180 ml 300 ml 0 ml Physical Exam General: Alert, Oriented X3, Cooperative, No acute distress Heart: Regular rate Abdomen: Soft, No tenderness Extremities: No edema, Normal pulses Skin: No significant lesion Labs Labs: Laboratory Tests Test 07/16/20 17:08 07/16/20 20:25 07/17/20 05:00 07/17/20 07:46 Glucose (Fingerstick) 134 mg/dL (70-99) 192 mg/dL (70-99) 198 mg/dL (70-99) White Blood Count 5.4 x10^3/uL (4.0-11.0) Red Blood Count 4.53 x10^6/uL (3.50-5.40) Hemoglobin 13.5 g/dL (12.0-15.5) Hematocrit 39.9 % (36.0-47.0) Mean Corpuscular Volume 88 fL (79-100) Mean Corpuscular Hemoglobin 30 pg (25-35) Mean Corpuscular Hemoglobin Concent 34 g/dL (31-37) Red Cell Distribution Width 12.3 % (11.5-14.5) Platelet Count 142 x10^3/uL (140-400) Neutrophils (%) (Auto) 46 % (31-73) Lymphocytes (%) (Auto) 40 % (24-48) Monocytes (%) (Auto) 11 % (0-9) Eosinophils (%) (Auto) 3 % (0-3) Basophils (%) (Auto) 0 % (0-3) Neutrophils # (Auto) 2.5 x10^3/uL (1.8-7.7) Lymphocytes # (Auto) 2.2 x10^3/uL (1.0-4.8) Monocytes # (Auto) 0.6 x10^3/uL (0.0-1.1) Eosinophils # (Auto) 0.1 x10^3/uL (0.0-0.7) Basophils # (Auto) 0.0 x10^3/uL (0.0-0.2) Sodium Level 141 mmol/L (136-145) Potassium Level 3.9 mmol/L (3.5-5.1) Chloride Level 106 mmol/L (98-107) Carbon Dioxide Level 28 mmol/L (21-32) Anion Gap 7 (6-14) Blood Urea Nitrogen 23 mg/dL (7-20) Creatinine 0.6 mg/dL (0.6-1.0) Estimated GFR (Cockcroft-Gault) 107.6 Glucose Level 190 mg/dL (70-99) Calcium Level 8.8 mg/dL (8.5-10.1) Magnesium Level 2.1 mg/dL (1.8-2.4) Free Triiodothyronine (T3) pg/mL 2.20 pg/mL (2.18-3.98) Test 07/17/20 12:10 Glucose (Fingerstick) 135 mg/dL (70-99) Assessment and Plan Assessmemt and Plan Problems Medical Problems: (1) CVA (cerebral vascular accident) Status: Acute (2) HTN (hypertension) Status: Acute Comment Review of Relevant I have reviewed the following items [email or web address] (where applicable) has been applied. Justifications for Admission Other Justification Acute stroke CINTHYA DISLA MD Jul 17, 2020 13:17
[2020-07-17] MEDS ORDERED: ASPI-886 PO (13:22)
[2020-07-17] MEDS ORDERED: ATOR40TA59 PO (13:22)
--- NOTE | 2020-07-17 13:36 | PDOC3 ---
Discharge Summary Visit Information Date of Admission: Jul 15, 2020 Date of Discharge: Jul 17, 2020 Final Diagnosis Problems Medical Problems: (1) CVA (cerebral vascular accident) Status: Acute (2) HTN (hypertension) Status: Acute Brief Hospital Course Allergies Allergies Coded Allergies Type Severity Reaction Last Updated Verified No Known Drug Allergies 07/15/20 No Vital Signs Vital Signs Date Time Temp Pulse Resp B/P (MAP) Pulse Ox O2 Delivery O2 Flow Rate FiO2 07/17/20 11:21 98.3 72 21 128/74 (92) 99 Room Air 98.3 Lab Results Laboratory Tests Test 07/15/20 15:35 07/15/20 16:55 07/15/20 17:40 07/15/20 21:33 Troponin I Quantitative < 0.017 ng/mL (0.000-0.055) < 0.017 ng/mL (0.000-0.055) Glucose (Fingerstick) 158 mg/dL (70-99) 137 mg/dL (70-99) Test 07/16/20 03:40 07/16/20 08:04 07/16/20 12:26 07/16/20 17:08 White Blood Count 5.3 x10^3/uL (4.0-11.0) Red Blood Count 4.26 x10^6/uL (3.50-5.40) Hemoglobin 12.9 g/dL (12.0-15.5) Hematocrit 37.2 % (36.0-47.0) Mean Corpuscular Volume 87 fL (79-100) Mean Corpuscular Hemoglobin 30 pg (25-35) Mean Corpuscular Hemoglobin Concent 35 g/dL (31-37) Red Cell Distribution Width 12.2 % (11.5-14.5) Platelet Count 138 x10^3/uL (140-400) Neutrophils (%) (Auto) 50 % (31-73) Lymphocytes (%) (Auto) 37 % (24-48) Monocytes (%) (Auto) 11 % (0-9) Eosinophils (%) (Auto) 2 % (0-3) Basophils (%) (Auto) 0 % (0-3) Neutrophils # (Auto) 2.7 x10^3/uL (1.8-7.7) Lymphocytes # (Auto) 2.0 x10^3/uL (1.0-4.8) Monocytes # (Auto) 0.6 x10^3/uL (0.0-1.1) Eosinophils # (Auto) 0.1 x10^3/uL (0.0-0.7) Basophils # (Auto) 0.0 x10^3/uL (0.0-0.2) Sodium Level 142 mmol/L (136-145) Potassium Level 3.4 mmol/L (3.5-5.1) Chloride Level 107 mmol/L (98-107) Carbon Dioxide Level 28 mmol/L (21-32) Anion Gap 7 (6-14) Blood Urea Nitrogen 13 mg/dL (7-20) Creatinine 0.6 mg/dL (0.6-1.0) Estimated GFR (Cockcroft-Gault) 107.6 Glucose Level 132 mg/dL (70-99) Calcium Level 8.5 mg/dL (8.5-10.1) Phosphorus Level 4.1 mg/dL (2.6-4.7) Magnesium Level 2.0 mg/dL (1.8-2.4) Glucose (Fingerstick) 144 mg/dL (70-99) 145 mg/dL (70-99) 134 mg/dL (70-99) Test 07/16/20 20:25 07/17/20 05:00 07/17/20 07:46 07/17/20 12:10 Glucose (Fingerstick) 192 mg/dL (70-99) 198 mg/dL (70-99) 135 mg/dL (70-99) White Blood Count 5.4 x10^3/uL (4.0-11.0) Red Blood Count 4.53 x10^6/uL (3.50-5.40) Hemoglobin 13.5 g/dL (12.0-15.5) Hematocrit 39.9 % (36.0-47.0) Mean Corpuscular Volume 88 fL (79-100) Mean Corpuscular Hemoglobin 30 pg (25-35) Mean Corpuscular Hemoglobin Concent 34 g/dL (31-37) Red Cell Distribution Width 12.3 % (11.5-14.5) Platelet Count 142 x10^3/uL (140-400) Neutrophils (%) (Auto) 46 % (31-73) Lymphocytes (%) (Auto) 40 % (24-48) Monocytes (%) (Auto) 11 % (0-9) Eosinophils (%) (Auto) 3 % (0-3) Basophils (%) (Auto) 0 % (0-3) Neutrophils # (Auto) 2.5 x10^3/uL (1.8-7.7) Lymphocytes # (Auto) 2.2 x10^3/uL (1.0-4.8) Monocytes # (Auto) 0.6 x10^3/uL (0.0-1.1) Eosinophils # (Auto) 0.1 x10^3/uL (0.0-0.7) Basophils # (Auto) 0.0 x10^3/uL (0.0-0.2) Sodium Level 141 mmol/L (136-145) Potassium Level 3.9 mmol/L (3.5-5.1) Chloride Level 106 mmol/L (98-107) Carbon Dioxide Level 28 mmol/L (21-32) Anion Gap 7 (6-14) Blood Urea Nitrogen 23 mg/dL (7-20) Creatinine 0.6 mg/dL (0.6-1.0) Estimated GFR (Cockcroft-Gault) 107.6 Glucose Level 190 mg/dL (70-99) Calcium Level 8.8 mg/dL (8.5-10.1) Magnesium Level 2.1 mg/dL (1.8-2.4) Free Triiodothyronine (T3) pg/mL 2.20 pg/mL (2.18-3.98) Laboratory Tests Test 07/16/20 17:08 07/16/20 20:25 07/17/20 05:00 07/17/20 07:46 Glucose (Fingerstick) 134 mg/dL (70-99) 192 mg/dL (70-99) 198 mg/dL (70-99) White Blood Count 5.4 x10^3/uL (4.0-11.0) Red Blood Count 4.53 x10^6/uL (3.50-5.40) Hemoglobin 13.5 g/dL (12.0-15.5) Hematocrit 39.9 % (36.0-47.0) Mean Corpuscular Volume 88 fL (79-100) Mean Corpuscular Hemoglobin 30 pg (25-35) Mean Corpuscular Hemoglobin Concent 34 g/dL (31-37) Red Cell Distribution Width 12.3 % (11.5-14.5) Platelet Count 142 x10^3/uL (140-400) Neutrophils (%) (Auto) 46 % (31-73) Lymphocytes (%) (Auto) 40 % (24-48) Monocytes (%) (Auto) 11 % (0-9) Eosinophils (%) (Auto) 3 % (0-3) Basophils (%) (Auto) 0 % (0-3) Neutrophils # (Auto) 2.5 x10^3/uL (1.8-7.7) Lymphocytes # (Auto) 2.2 x10^3/uL (1.0-4.8) Monocytes # (Auto) 0.6 x10^3/uL (0.0-1.1) Eosinophils # (Auto) 0.1 x10^3/uL (0.0-0.7) Basophils # (Auto) 0.0 x10^3/uL (0.0-0.2) Sodium Level 141 mmol/L (136-145) Potassium Level 3.9 mmol/L (3.5-5.1) Chloride Level 106 mmol/L (98-107) Carbon Dioxide Level 28 mmol/L (21-32) Anion Gap 7 (6-14) Blood Urea Nitrogen 23 mg/dL (7-20) Creatinine 0.6 mg/dL (0.6-1.0) Estimated GFR (Cockcroft-Gault) 107.6 Glucose Level 190 mg/dL (70-99) Calcium Level 8.8 mg/dL (8.5-10.1) Magnesium Level 2.1 mg/dL (1.8-2.4) Free Triiodothyronine (T3) pg/mL 2.20 pg/mL (2.18-3.98) Test 07/17/20 12:10 Glucose (Fingerstick) 135 mg/dL (70-99) Brief Hospital Course Ms. Gruber is a 44 old female who presented with CVA. Consults were placed to neurology. He had an MRI that showed small area of acute infarct in the right frontoparietal region, no acute hemorrhage. Her symptoms gradually improved and she did not require inpatient rehab. She is stable for discharge with aspirin and statin. Discharge Information Condition at Discharge: Improved Disposition/Orders: D/C to Home Scheduled Aspirin (Aspirin Ec) 81 Mg Tablet.dr, 81 MG PO [id number] for TIA, #30 Ref 3 Prescribed by: CINTHYA DISLA MD on 07/17/20 1322 Atorvastatin Calcium (Atorvastatin Calcium) 40 Mg Tablet, 40 MG PO QHS for TIA, #30 Ref 3 Prescribed by: CINTHYA DISLA MD on 07/17/20 1322 Justicifation of Admission Dx: Justifications for Admission: Justification of Admission Dx: Yes Stroke - Ischemic: Stroke-Ischemic CINTHYA DISLA MD Jul 17, 2020 13:36
[2020-07-17 15:29] VITALS: BP 135/62
--- NOTE | 2020-07-17 16:47 | NUR ---
SW following. Spoke with RN and reviewed chart. Pt to discharge home today, self-care. Pt on room air and oral medications. No further SW needs at this time.
--- NOTE | 2020-07-17 18:25 | NUR ---
Patient discharged to brother in stable condition. Patient alert and oriented, gait steady, now denies numbness. Discharge NIH stroke scale completed prior to discharge. Patient, brother verbalized understanding of needing to follow up with physicians. Patient informed of appointment already made with Dr Hoover, information included in discharge. Patient also provided with Dr Metzger's address and phone number, to call and make appointment. Patient, brother related that she does not have regular physician, that she goes to an urgent care when needed. Patient, brother verbalized understanding of needing to have a regular physician as well, such as for treating diabetes. Patient given printed information for clinics, resources in area. Patient given printed prescriptions for aspirin, atorvastatin, copies in chart. IV access was discontinued prior to discharge, tele monitor discontinued.
== END 2020-07-17 18:25 | disposition home or self-care (01) | DRG 66 ==
LOC: ER 12:01 → 5 NORTH 14:24
PROVIDERS: ADMIT Internal Medicine; ATTEND Internal Medicine
DX: I63.9 Cerebral infarction, unspecified (principal); E11.65 Type 2 diabetes mellitus with hyperglycemia; E78.5 Hyperlipidemia, unspecified; E83.42 Hypomagnesemia; I10 Essential (primary) hypertension; I16.0 Hypertensive urgency; I71.2 Thoracic aortic aneurysm, without rupture; Z79.82 Long term (current) use of aspirin; Z82.49 Family history of ischemic heart disease and other diseases of the circulatory system
CPT/HCPCS: 36415; 70450; 70496; 70498; 70551; 71045; 80048; 80053; 80061; 80307; 81001; 82962; 83036; 83690; 83735; 83880; 84100; 84439; 84443; 84481; 84484; 85025; 85610; 85730; 93005; 93306; 96374; 99285; J3475; J3490; Q9967; 92610-GN; G0378